=== PATIENT | female | born 1990 | race Caucasian/White ===

== ENCOUNTER 2023-06-08 20:40 | Emergency (ER) | payer OTHER, SELFPAY ==
[2023-06-08 20:50] VITALS: BP 150/80; PULSE 122; RESP 18; TEMP 36.4; O2SAT 98; BMI 31.8
[2023-06-08 22:14] LABS: Appearance Urine UA CLEAR; Bilirubin Urine UA NEGATIVE (NEGATIVE); Color Urine UA YELLOW; Glucose Urine UA NEGATIVE (Negative); Ketones Urine UA 1+ (NEGATIVE); Leukocyte Esterase Urine UA NEGATIVE (NEGATIVE); Nitrite Urine UA NEGATIVE (Negative); Occult Blood Urine UA 3+ (Negative); Protein Urine UA 1+ (Negative); Specific Gravity Urine UA >=1.030 (1.000-1.035); Urobilinogen Urine UA 0.2 E.U./dL (0.2)
[2023-06-08 22:15] LABS: pH Urine UA 5.5 (4.5-8.0)
[2023-06-08 22:19] LABS: Pregnancy Test Urine Negative (Negative); UR Morphine/Opiate cutoff 300 Negative (Negative); Ur Creatinine Normal (Normal); Ur Specific Gravity Normal (Normal); Urine Amphetamines Negative (Negative); Urine Barbiturates Negative (Negative); Urine Benzodiazepines Negative (Negative); Urine Cocaine Negative (Negative); Urine MDMA Negative (Negative); Urine Methadone Negative (Negative); Urine Methamphetamines Negative (Negative); Urine Oxycodone Negative (Negative); Urine Phencyclidine Negative (Negative); Urine Tetrahydrocannabinol Positive (Negative); Urine Tricyclic Antidepressant Negative (Negative); Urine pH Normal (Normal)
[2023-06-08 22:35] LABS: Amorphous Sediment Urine 2+; Bacteria Urine Occasional (0-1); RBC Urine 5-10/HPF (0-5/HPF); Squamous Epithelial Cell Urine 1-5 /HPF (0-5/HPF); WBC Urine 0-1/HPF (0-5/HPF)
[2023-06-08 22:36] LABS: Culture Indicated Urine Cult Not Indicated
[2023-06-08 23:42] LABS: Add Manual Diff / Slide Review NO; Basophils Absolute Auto 0 /uL (0-100); Basophils Percent Auto 0.4 % (0-2); Eosinophils Absolute Auto 0 /uL (0-450); Hematocrit 37.5 % (36-46); Hemoglobin 12.7 g/dL (12.0-16.0); Lymphocytes Absolute Auto 1000 /uL (1100-4500); Lymphocytes Percent Auto 9.2 % (25-40); Mean Corpuscular HGB Conc 33.9 % (30-36); Mean Corpuscular Volume 100.1 fL (80-100); Monocytes Absolute Auto 700 /uL (0-900); Neutrophils Absolute Auto 8700 /uL (1500-7000); Neutrophils Percent Auto 83.4 % (50-75); Platelet Count 300 X10^3/uL (150-400); Red Blood Cell Count 3.74 X10^6/uL (4.0-5.2); Red Cell Distribution Width 14.3 % (11.6-14.8); White Blood Cell Count 10.5 X10^3/uL (4.5-11.0)
[2023-06-08 23:52] LABS: Alanine Aminotransferase 87 IU/L (<35); Albumin 4.4 g/dL (3.5-5.0); Albumin Globulin Ratio 1.3 (1.0-2.8); Alkaline Phosphatase 86 U/L (38-126); Aspartate Aminotransferase 193 IU/L (14-36); BUN Creatinine Ratio 16.4 (6-22); Bilirubin Total 1.2 mg/dL (0.2-1.3); Blood Urea Nitrogen 11 mg/dL (7-17); Calcium 9.7 mg/dL (8.4-10.2); Carbon Dioxide 26 mmol/L (22-32); Chloride 96 mmol/L (98-107); Estimated Glomerular Filt Rate > 60 mL/min (>60); Ethanol (ETOH) < 10 mg/dL; Globulin 3.4 g/dL (1.7-4.1); Glucose 96 mg/dL (70-100); HEMOLYSIS < 15 (0-50); Potassium 3.8 mmol/L (3.4-5.1); Sodium 132 mmol/L (137-145); Total Protein 7.8 g/dL (6.3-8.2)
--- NOTE | 2023-06-09 | ED.PSYCH ---
HPI - Psych General Chief Complaint: Psychiatric Symptoms Stated Complaint: anxiety/hallucination/poss seizure Time Seen by Provider: 06/08/23 21:11 Source: patient Mode of arrival: Ambulatory History of Present Illness HPI Narrative: 33-year-old woman presents this evening after an episode that her describes as seizure-like activity. They were lying in bed together and he noticed that she became stiff all over her arms were straight out in front of her with some muscle twitching. She was unresponsive and he turned her onto her side. After about a minute she seemed to be more responsive but was still quite confused for approximately 15-30 minutes after the episode. There was no loss of bowel or bladder. The patient does not remember this episode and describes a fuzzy feeling persisted. On further questioning she notes that she will occasionally have episodes that she describes as ?intense days of who? where she will stare off up into the left and be absent for a moment or 2 enough that friends and family notice as well. She noted today that she had quite a few of these episodes. She does not describe recent fevers, cough, chills. She isn't particularly sleep deprived. She notes she does use marijuana regularly to help with sleep. Related Data Home Medications Medication Instructions Recorded Confirmed hydroxyzine HCl 25 mg tablet 25 mg PO Q6H PRN PRN 06/08/23 06/08/23 venlafaxine 150 mg 150 mg PO DAILY 06/08/23 06/08/23 capsule,extended release 24 hr venlafaxine 75 mg capsule,extended 75 mg PO DAILY 06/08/23 06/08/23 release 24 hr Previous Rx's Medication Instructions Recorded diazepam 5 mg tablet 5 mg PO DAILY PRN seizure like 06/09/23 activity #10 tabs Allergies Allergy/AdvReac Type Severity Reaction Status Date / Time Penicillins Allergy Verified 06/08/23 20:50 Review of Systems Review of Systems Narrative: Pertinent positive and negative findings as per HPI Patient History alcohol intake frequency: holidays/special occasions only Substance Use Type: marijuana Exam Initial Vital Signs Initial Vital Signs: Vital Signs Temperature 97.6 F 06/08/23 20:50 Pulse Rate 122 H 06/08/23 20:50 Respiratory Rate 18 06/08/23 20:50 Blood Pressure 150/80 H 06/08/23 20:50 Pulse Oximetry 98 06/08/23 20:50 Oxygen Delivery Method Room Air 06/08/23 20:50 General: Healthy appearing, in no acute distress. Able to give a complete and coherent history. Well-nourished well-developed HEENT: Moist mucous membranes, normal sclera with reactive pupils, small bite benton right side of her tongue Respiratory: Lungs are clear to auscultation, no wheezing no rales no rhonchi. Full and symmetrical air movement Cardiac: Regular rate and rhythm no murmurs no bruits Abdomen: Soft, nontender, good bowel tones, no flank pain Skin: Warm and dry, no rashes Neurologic: Grossly neurologically intact with no obvious asymmetries or abnormalities, she is not hyperreflexic Extremities: No trauma, well perfused Psych: Cooperative, appropriate insight and affect Course Orders Ordered: ED Orders 06/08/23 20:53 Urine Drug Screen, Rapid Stat 06/08/23 22:01 Test Urine Stat urine tox [Urine Drug Screen, Rapid] Stat 06/08/23 22:06 Urinalysis and Microscopic Stat 06/08/23 23:23 EKG-12 Lead Stat 06/08/23 23:33 Complete Blood Count AUTO DIFF Stat Comprehensive Metabolic Panel Stat Ethanol (ETOH) Stat TSH w/ Reflex to FT4 Stat Vital Signs Vital signs: Vital Signs - 8 hr 06/08/23 20:50 Temperature 97.6 F Pulse Rate 122 H Respiratory Rate 18 Blood Pressure 150/80 H Pulse Oximetry 98 Oxygen Delivery Method Room Air MDM - Psych Lab Data 06/08/23 23:33 06/08/23 23:33 Labs: Lab Results 06/08/23 06/08/23 06/08/23 Range/Units 20:53 22:01 22:06 WBC (4.5-11.0) X10^3/uL RBC (4.0-5.2) X10^6/uL Hgb (12.0-16.0) g/dL Hct (36-46) % MCV (80-100) fL MCH (26-34) PG MCHC (30-36) % RDW (11.6-14.8) % Plt Count (150-400) X10^3/uL Neut % (Auto) (50-75) % Lymph % (Auto) (25-40) % [place] % (Auto) (3-14) % Eos % (Auto) (2-4) % Baso % (Auto) (0-2) % Neut # (Auto) (7000-1295) /uL Lymph # (Auto) (1567-3102) /uL [place] # (Auto) (0-900) /uL Eos # (Auto) (0-450) /uL Baso # (Auto) (0-100) /uL Sodium (137-145) mmol/L Potassium (3.4-5.1) mmol/L Chloride (98-107) mmol/L Carbon Dioxide (22-32) mmol/L BUN (7-17) mg/dL Creatinine (0.52-1.04) mg/dL Estimated GFR (>60) mL/min BUN/Creatinine Ratio (6-22) Glucose (70-100) mg/dL Calcium (8.4-10.2) mg/dL Total Bilirubin (0.2-1.3) mg/dL AST (14-36) IU/L ALT (<35) IU/L Alkaline Phosphatase (38-126) U/L Total Protein (6.3-8.2) g/dL Albumin (3.5-5.0) g/dL Globulin (1.7-4.1) g/dL Albumin/Globulin Ratio (1.0-2.8) Urine Color Yellow Urine Appearance Clear Ur Specific [place] >=1.030 H (1.000-1.035) Urine Protein 1+ H (Negative) Urine Glucose (UA) Negative (Negative) g/dL Urine Ketones 1+ H (NEGATIVE) Urine Occult Blood 3+ H (Negative) Urine Nitrate Negative (Negative) Urine Bilirubin Negative (NEGATIVE) Urine Urobilinogen 0.2 (0.2) E.U./dL Ur Leukocyte Esterase Negative (NEGATIVE) Urine RBC 5-10/hpf H (0-5/HPF) Urine WBC 0-1/hpf (0-5/HPF) Ur Squamous Epith Cells 1-5 /hpf (0-5/HPF) Amorphous Sediment 2+ Urine Bacteria Occasional (0-1) (None) Ur Culture Indicated? Cult not indicated Urine Test Negative (Negative) U Opiates 300ng/mL cut TNP Negative Ur Oxycodone Screen TNP Negative Urine Methadone Screen TNP Negative Ur Barbiturates Screen TNP Negative U Tricyclic Antidepress TNP Negative Ur Phencyclidine Scrn TNP Negative Ur Amphetamines Screen TNP Negative U Methamphetamines Scrn TNP Negative Ur MDMA Scrn (Ecstasy) TNP Negative U Benzodiazepines Scrn TNP Negative Urine Cocaine Screen TNP Negative U Marijuana (THC) Screen TNP Positive H Urine pH TNP Normal 5.5 Urine Specific [place] TNP Normal Ethyl Alcohol ( - 10) mg/dL Ur Creatinine TNP Normal 12/30/23 Range/Units 23:33 WBC 10.5 (4.5-11.0) X10^3/uL RBC 3.74 L (4.0-5.2) X10^6/uL Hgb 12.7 (12.0-16.0) g/dL Hct 37.5 (36-46) % MCV 100.1 H (80-100) fL MCH 34.0 (26-34) PG MCHC 33.9 (30-36) % RDW 14.3 (11.6-14.8) % Plt Count 300 (150-400) X10^3/uL Neut % (Auto) 83.4 H (50-75) % Lymph % (Auto) 9.2 L (25-40) % [place] % (Auto) 7.0 (3-14) % Eos % (Auto) 0.0 L (2-4) % Baso % (Auto) 0.4 (0-2) % Neut # (Auto) 8700 H (1152-7972) /uL Lymph # (Auto) 1000 L (8342-7915) /uL [place] # (Auto) 700 (0-900) /uL Eos # (Auto) 0 (0-450) /uL Baso # (Auto) 0 (0-100) /uL Sodium 132 L (137-145) mmol/L Potassium 3.8 (3.4-5.1) mmol/L Chloride 96 L (98-107) mmol/L Carbon Dioxide 26 (22-32) mmol/L BUN 11 (7-17) mg/dL Creatinine 0.67 (0.52-1.04) mg/dL Estimated GFR > 60 (>60) mL/min BUN/Creatinine Ratio 16.4 (6-22) Glucose 96 (70-100) mg/dL Calcium 9.7 (8.4-10.2) mg/dL Total Bilirubin 1.2 (0.2-1.3) mg/dL AST 193 H (14-36) IU/L ALT 87 H (<35) IU/L Alkaline Phosphatase 86 (38-126) U/L Total Protein 7.8 (6.3-8.2) g/dL Albumin 4.4 (3.5-5.0) g/dL Globulin 3.4 (1.7-4.1) g/dL Albumin/Globulin Ratio 1.3 (1.0-2.8) Urine Color Urine Appearance Ur Specific [place] (1.000-1.035) Urine Protein (Negative) Urine Glucose (UA) (Negative) g/dL Urine Ketones (NEGATIVE) Urine Occult Blood (Negative) Urine Nitrate (Negative) Urine Bilirubin (NEGATIVE) Urine Urobilinogen (0.2) E.U./dL Ur Leukocyte Esterase (NEGATIVE) Urine RBC (0-5/HPF) Urine WBC (0-5/HPF) Ur Squamous Epith Cells (0-5/HPF) Amorphous Sediment Urine Bacteria (None) Ur Culture Indicated? Urine Test (Negative) U Opiates 300ng/mL cut Ur Oxycodone Screen Urine Methadone Screen Ur Barbiturates Screen U Tricyclic Antidepress Ur Phencyclidine Scrn Ur Amphetamines Screen U Methamphetamines Scrn Ur MDMA Scrn (Ecstasy) U Benzodiazepines Scrn Urine Cocaine Screen U Marijuana (THC) Screen Urine pH Urine Specific [place] Ethyl Alcohol < 10 ( - 10) mg/dL Ur Creatinine Point of Care Testing Test Results Negative Urine Dip Bedside Urine Glucose Negative Bedside Urine Bilirubin - Negative Bedside Urine Ketone - Negative Urine Specific [place] 1.000 Bedside Urine Occult Blood - Negative Bedside Urine pH 6.0 Bedside Urine Protein - Negative Bedside Urine Urobilinogen - Negative Bedside Urine Nitrite - Negative Bedside Urine Leukocytes - Negative Esterase MDM Narrative Medical decision making narrative: CC: Probable seizure with postictal. Complicating co-morbidities: Seizures have not been diagnosed, she may be having PET mal seizures as well Data collected from: patient, partner Differential considered: Grand mal seizure, peptic mal seizure, infection, electrolyte abnormality, adverse reaction to THC Exam documented above, pertinent findings include: Patient seems to be back to her baseline both cognitively and physically. She is not hyperreflexic. She does have a small bite benton to the right side of her tongue suggesting seizure activity Lab Test results independently reviewed as above. Pertinent findings: CBC is unremarkable Chemistries are relatively reassuring, she has mildly elevated AST and ALT Urine tox screen shows marijuana only Urinalysis is unremarkable Independently reviewed EKG: Sinus rhythm at a rate of 93. Normal intervals, normal axis. No acute ischemic changes Imaging studies independently reviewed: CT scans of the brain is ordered as this is likely a 1st grand mal seizure and 33-year-old woman. No acute abnormalities are appreciated Treatments: Oral diazepam Discussion: 33-year-old woman who sounds like she had a couple of episodes of PET mal seizures today culminating in a 1 minute grand mal seizure. She is never had a grand mal seizure that she is aware of. She does have a bite benton tongue and descriptions of postictal. She is currently clearing. Workup is unremarkable including CT scan and lab work. We discussed use of diazepam if she has a day where she is having multiple episodes of what likely are patent mal seizures that she is describing as intense episodes of Kortney vu?. With the 1st seizure and no formal diagnosis made there is no indication for seizure treatment daily. She notes that she does use an indicate blend of THC at night for sleep. I suggested that if she is going to be using THC, to buy a product that also is high in CBD as this may help with seizure prevention. He is given copies of labs and CT scan to share with her primary care doctor with whom she has an appointment in 1 week. Understands the need for appropriate follow-up and reasons to return to the emergency department. Questions are answered and she is safe for discharge Discharge Plan Departure Patient Disposition: Home Clinical Impression: Seizure Instructions: DI for Seizure Disorder -- Adult Activity Restrictions/Additional Instructions: Thank you for coming in today The description of the events of this evening very much sound like a seizure. Your description of the recurrent ?Kortney vu? episodes where your friends even notice that you are looking up to the side may well be PET mal type seizures. The 1 minute episode with total body stiffness is very consistent with a grand mal seizure this evening. The memory loss immediately after that in the persistent fuzzy feeling for an hour or so is very consistent with a postictal period (meaning after seizure). Your workup today was actually quite reassuring otherwise. Your blood work did not suggest significant infection or electrolyte abnormalities. We did do a CT scan of your brain that did not show any significant abnormalities. You do need to follow up with your primary care doctor who may recommend neurology referral or an EEG for complete diagnosis. I have given you copies of the blood work results and CT report from the emergency room this evening If you find that you are getting worse or develop any new symptoms, please feel free to return to the emergency department for further evaluation. Prescriptions: New diazepam 5 mg tablet 5 mg PO DAILY PRN (Reason: seizure like activity) Qty: 10 0RF No Action venlafaxine 150 mg capsule,extended release 24hr 150 mg PO DAILY venlafaxine 75 mg capsule,extended release 24hr 75 mg PO DAILY hydroxyzine HCl 25 mg tablet 25 mg PO Q6H PRN (Reason: PRN) Referrals: Bijal Johns ARNP [Primary Care Provider] - Stand Alone Forms: Patient Portal/API
--- NOTE | 2023-06-09 00:18 | DI.CT.S_ITS ---
PROCEDURE: CT HEAD/BRAIN WO CON INDICATIONS: seizure TECHNIQUE: Noncontrast 4.5 mm thick angled axial sections acquired from the foramen magnum to the vertex, with coronal and sagittal reformats. For radiation dose reduction, the following was used: automated exposure control, adjustment of mA and/or kV according to patient size. COMPARISON: None. FINDINGS: Image quality: Diagnostic. CSF spaces: Basal cisterns are patent. No extra-axial fluid collections. Ventricles are normal in size and shape. Brain: No midline shift. No intracranial masses or hemorrhage. Lezama-white matter interface is normal. Skull and face: Calvarium and visualized facial bones are intact, without suspicious lesions. Sinuses: Visualized sinuses and mastoids are clear. IMPRESSION: 1. No acute intracranial pathology. A cause for seizure is not identified. Consider MRI with and without contrast for follow-up Dictated by: Clarissa Hernandez M.D. on 06/09/2023 at 0:52 Approved by: Clarissa Hernandez M.D. on 06/09/2023 at 0:54
[2023-06-09] MEDS: diazePAM 5 MG TABLET PO (00:19)
[2023-06-09 00:48] LABS: TSH w/ Reflex to FT4 1.02 uIU/mL (0.47-4.68)
[2023-06-09 01:29] VITALS: BP 128/70; PULSE 88; RESP 16; TEMP 36.3; O2SAT 98
== END 2023-06-09 01:30 | disposition home or self-care (01) ==
PROVIDERS: Emergency Provider Emergency Medicine; PCP Nurse Practitioner Family
DX: G40.909 Epilepsy, unspecified, not intractable, without status epilepticus (principal); R07.9 Chest pain, unspecified
CPT/HCPCS: 36415; 70450; 80053; 80305; 80320; 81001; 81003; 81025; 84443; 85025; 93005; 99283; 99284

== ENCOUNTER → 2024-07-19 15:44 | Outpatient (CLI) | payer BC, SELFPAY ==
[2024-07-19 16:29] LABS: Influenza A - CEPHEID Flu A NEGATIVE (NEGATIVE); Influenza B - CEPHEID Flu B NEGATIVE (NEGATIVE); Respiratory Syncytial Virus Negative (Negative)
[2024-07-19 16:30] LABS: COVID-19 CEPHEID 4-PLEX PCR Negative (Negative)
== END ==
PROVIDERS: PCP Nurse Practitioner Family; Visit Provider Nurse Practitioner Family
DX: R05.1 Acute cough (principal)
CPT/HCPCS: 0241U; 87070

== ENCOUNTER 2025-01-12 13:36 | Inpatient (IN) | payer BC, SELFPAY ==
[2025-01-12] VITALS (20 sets, daily range): BP systolic 130–175; BP diastolic 74–112; PULSE 90–167; RESP 20–39; TEMP 36.1–37.2; O2SAT 97–100; BMI 31.8
--- NOTE | 2025-01-12 14:13 | DI.CT.S_ITS ---
PROCEDURE: CT HEAD/BRAIN WO CON INDICATIONS: seizure/fall TECHNIQUE: Noncontrast 4.5 mm thick angled axial sections acquired from the foramen magnum to the vertex, with coronal and sagittal reformats. For radiation dose reduction, the following was used: automated exposure control, adjustment of mA and/or kV according to patient size. COMPARISON: [facility], CT, CT HEAD/BRAIN WO CON, 06/09/2023, 0:30. FINDINGS: Image quality: Diagnostic CSF spaces: Basal cisterns are patent. Lateral ventricles are symmetric. Volume: Generally maintained. Brain: No intracranial hemorrhage. Lezama-white differentiation is grossly maintained. Craniofacial structures: No significant paranasal sinus opacity. IMPRESSION: No acute intracranial pathology. If there is high concern for parenchymal pathology, consider further evaluation with MRI. Dictated by: Ilya Guzman M.D. on 01/12/2025 at 14:34 Approved by: Ilya Guzman M.D. on 01/12/2025 at 14:35
[2025-01-12 14:28] LABS: Add Manual Diff / Slide Review NO; Hematocrit 32.0 % (36-46); Hemoglobin 10.7 g/dL (12.0-16.0); Lymphocytes Absolute Auto 1200 /uL (1100-4500); Mean Corpuscular HGB Conc 33.4 % (30-36); Mean Corpuscular Hemoglobin 30.2 PG (26-34); Mean Corpuscular Volume 90.5 fL (80-100); Platelet Count 200 X10^3/uL (150-400)
[2025-01-12 14:31] LABS: INR 1.0 (0.9-1.3); Prothrombin Time 11.8 SECONDS (9.4-12.5)
[2025-01-12 14:33] LABS: PTT Partial Thromboplastin Tim 26 SECONDS (25.1-36.5)
[2025-01-12 14:40] LABS: Anisocytosis 2+
[2025-01-12 14:46] LABS: Ethanol (ETOH) < 10 mg/dL (<10); Magnesium 1.4 mg/dL (1.6-2.3)
[2025-01-12 14:47] LABS: Alanine Aminotransferase 77 IU/L (<35); Albumin 4.9 g/dL (3.5-5.0); Albumin Globulin Ratio 1.3 (1.0-2.8); Alkaline Phosphatase 100 U/L (38-126); Blood Urea Nitrogen 11 mg/dL (7-17); Calcium 9.7 mg/dL (8.4-10.2); Carbon Dioxide 20 mmol/L (22-32); Chloride 97 mmol/L (98-107); Estimated Glomerular Filt Rate > 60 mL/min (>60); Globulin 3.7 g/dL (1.7-4.1); Glucose 113 mg/dL (70-99); HEMOLYSIS < 15 (0-50); Potassium 3.4 mmol/L (3.4-5.1); Sodium 133 mmol/L (137-145); Total Protein 8.6 g/dL (6.3-8.2)
--- NOTE | 2025-01-12 15:58 | ED_ITS ---
HPI - Seizure General Chief Complaint: Seizure Stated Complaint: Had Seizure yesterday hit face, and left arm Time Seen by Provider: 01/12/25 15:32 Source: patient Mode of arrival: Ambulatory Limitations: no limitations History of Present Illness HPI Narrative: This is a 34-year-old female who arrives by private vehicle accompanied by her . She is concerned that she had a seizure yesterday. is present witnessed a seizure and contributes the history. Reportedly yesterday morning she was found by her with her arms outstretched unresponsive muscles tense ?breathing funny? and drooling. This persisted for about 3 minutes, the patient states she has no recollection of this. Following this she had an approximately 10 minute postictal phase until she regained full orientation. She did bite her tongue, she injured the right side of her face during the seizure. The patient has had 1 seizure in her lifetime previously where she was seen here. She is not regularly take antiseizure medications. She does take Effexor 150 mg daily and propranolol she believes it is 60 mg daily. The propranolol for hypertension. The patient drinks alcohol daily approximately a bottle of wine for the last 6 weeks. She has had alcohol withdrawal tremors in the past. Today she is endorsing auditory hallucinations. She is not having nausea or vomiting. She has never been hospitalized for alcohol withdrawals. States her last alcohol was the night before she had the seizure. That seizure was approximately 36 hours ago. She has not had a seizure since. Denies recreational drug use states that she can not get . Related Data Home Medications ?Medication ?Instructions ?Recorded ?Confirmed hydroxyzine HCl 25 mg tablet 25 mg PO Q6H PRN PRN 05/1201/12/25 venlafaxine 150 mg 150 mg PO DAILY 06/08/2311/01 capsule,extended release 24 hr propranolol 60 mg capsule,24 60 mg PO DAILY 07/19/24 0 01/12/25 hr,extended release venlafaxine 75 mg capsule,extended 75 mg PO DAILY 12/0201/13/25 release 24 hr Previous Rx's ?Medication ?Instructions ?Recorded diazepam 5 mg tablet 5 mg PO DAILY PRN seizure li ke 06/09/23 activity #10 tabs diazepam 5 mg/spray (0.1 mL) nasal 5 mg (0.1 mL) intra nasal .once PRN 01/14/25 spray (Valtoco) Seizure #5 ea thiamine HCl (vitamin B1) 100 mg 100 mg PO BID #60 tab s 01/14/25 tablet Allergies Allergy/AdvReac Type Severity Reaction Status Date / Time Penicillins Allergy Intermediate Hives Verified 01/12/25 17:42 amoxicillin AdvReac Intermediate Hives Verified 01/12/25 17:42 Patient History Social History household members: significant other Smoking Status: Never smoker alcohol intake frequency: holidays/special occasions only Exam Initial Vital Signs Initial Vital Signs: Vital Signs Temperature 96.9 F L 01/12/25 13:45 Pulse Rate 110 H 01/12/25 13:45 Respiratory Rate 20 01/12/25 13:45 Blood Pressure 145/97 H 01/12/25 13:45 Pulse Oximetry 98 01/12/25 13:45 Oxygen Delivery Method Room Air 01/12/25 13:45 vital signs are reviewed Const General: cooperative HENMT Head: normocephalic Face and sinus: face symmetric Mouth: moist mucous membranes (Bite wound to the right side of the tongue) Teeth and gingiva: dentition normal HENND Other: Ecchymosis to the right side of her face Eyes Pupils: PERRL EOM: EOM intact bilaterally Neck Neck: normal visual inspection, supple and No JVD Chest Chest: normal inspection of the chest Resp Effort & Inspection: normal respiratory effort and able to speak in complete sentences Auscultation: clear to auscultation bilaterally Cardio Rate: regular rate Rhythm: regular rhythm Heart Sounds: no murmurs GI Inspection: normal to inspection Palpation: soft Auscultation: normal bowel sounds Back/Spine/Pelvis Back: normal to inspection Skin General: no rashes or lesions noted and warm Neuro General: patient alert, patient oriented x3 (Quite tremulous.) and moves all extremities Speech: speech normal Extrem General: full ROM Psych Appearance: grossly normal Course Orders Ordered: Discontinued Medications Chlordiazepoxide HCl (Chlordiazepoxide 25 Mg Capsule) 25 mg PO TID [facility] Last Admin: 01/14/25 14:40 Dose: 25 mg Documented By: Admin: 01/14/25 08:49 Dose: 25 mg Documented By: Admin: 01/13/25 20:43 Dose: 25 mg Documented By: Admin: 01/13/25 15:19 Dose: 25 mg Documented By: Admin: 01/13/25 09:23 Dose: 25 mg Documented By: Admin: 01/12/25 20:59 Dose: 25 mg Documented By: Admin: 01/12/25 18:04 Dose: 25 mg Documented By: LIT Diazepam (Diazepam 10 Mg/2 Ml Syringe) 10 mg IV Q20MIN PRN PRN Reason: Seizures Diazepam (Diazepam 10 Mg/2 Ml Syringe) 0 mg IV CIWAPRN PRN; Protocol PRN Reason: Alcohol Withdrawal Last Admin: 01/13/25 20:32 Dose: 10 mg Documented By: Admin: 01/13/25 19:08 Dose: 10 mg Documented By: Admin: 01/13/25 17:39 Dose: 5 mg Documented By: Admin: 01/13/25 10:55 Dose: 5 mg Documented By: Admin: 01/13/25 00:25 Dose: 10 mg Documented By: Admin: 01/12/25 21:00 Dose: 5 mg Documented By: Folic Acid (Folic Acid 1 Mg Tablet) 1 mg PO DAILY CHRISTIANO Last Admin: 01/14/25 08:49 Dose: 1 mg Documented By: Admin: 01/13/25 10:55 Dose: 1 mg Documented By: LIT Thiamine HCl 100 mg/ Sodium (Chloride) 101 mls @ 404 mls/hr IV DAILY CHRISTIANO Last Infusion: 01/14/25 09:41 Dose: Infused Documented By: Admin: 01/14/25 08:53 Dose: 404 mls/hr Documented By: Infusion: 01/13/25 09:38 Dose: Infused Documented By: Admin: 01/13/25 09:23 Dose: 404 mls/hr Documented By: LIT dexmedeTOMIDine in 0.9 % NaCL (Precedex) 400 mcg in 100 mls @ 4.082 mls/hr IV TITRATE CHRISTIANO; Protocol Last Admin: 01/12/25 18:29 Dose: Not Given Documented By: LIT Lorazepam (Lorazepam 2 Mg/Ml Inj) 0 mg IV CIWAPRN PRN; Protocol PRN Reason: Alcohol Withdrawal Lorazepam (Lorazepam 1 Mg Tablet) 0 mg PO CIWAPRN PRN; Protocol PRN Reason: Alcohol Withdrawal Last Admin: 01/12/25 19:47 Dose: 1 mg Documented By: Multivitamins (Multivitamin 1 Tablet) 1 tab PO DAILY [facility] Last Admin: 01/14/25 08:49 Dose: 1 tab Documented By: Admin: 01/13/25 09:23 Dose: 1 tab Documented By: LIT Naloxone HCl (Naloxone 0.4 Mg/Ml Vial) 0.2 mg IV Q2MIN PRN PRN Reason: Opiate Reversal Pantoprazole Sodium (Pantoprazole Dr 40 Mg Tablet) 40 mg PO 0700 [facility] Last Admin: 01/14/25 09:09 Dose: Not Given Documented By: Admin: 01/13/25 09:23 Dose: 40 mg Documented By: LIT Phenobarbital (Phenobarbital 65 Mg/Ml Vial) 260 mg IV NOW ONE Stop: 01/12/25 16:01 Last Admin: 01/12/25 16:32 Dose: 260 mg Documented By: ROSHAN Phenobarbital (Phenobarbital 65 Mg/Ml Vial) 65 mg IV Q8H [facility] Stop: 01/15/25 16:44 Last Admin: 01/14/25 00:10 Dose: Not Given Documented By: Admin: 01/13/25 16:48 Dose: 65 mg Documented By: Admin: 01/13/25 09:23 Dose: 65 mg Documented By: Admin: 01/13/25 00:11 Dose: 65 mg Documented By: Admin: 01/12/25 18:04 Dose: 65 mg Documented By: LIT Phenobarbital (Phenobarbital 65 Mg/Ml Vial) 65 mg IV Q8H [facility] Stop: 01/15/25 22:01 Last Admin: 01/14/25 09:41 Dose: Not Given Documented By: GHULAM Phenobarbital (Phenobarbital 65 Mg/Ml Vial) 30 mg IV Q8H [facility] Stop: 01/16/25 06:01 Potassium Chloride (Potassium Chloride 20 Meq Tab) 40 meq PO Q6H [facility] Stop: 01/13/25 15:16 Last Admin: 01/13/25 15:20 Dose: 40 meq Documented By: Admin: 01/13/25 10:56 Dose: 40 meq Documented By: LIT Venlafaxine HCl (Venlafaxine Er 75 Mg Cap) 75 mg PO DAILY [facility] Venlafaxine HCl (Venlafaxine Er 75 Mg Cap) 225 mg PO DAILY [facility] Last Admin: 01/14/25 08:49 Dose: 225 mg Documented By: GHULAM Consultations Consultation #1: Case is discussed with hospitalist, Dr. Paniagua, accepts admission Vital Signs Vital signs: Vital Signs - 8 hr 01/12/25 13:45 Temperature 96.9 F L Pulse Rate 110 H Respiratory Rate 20 Blood Pressure 145/97 H Pulse Oximetry 98 Oxygen Delivery Method Room Air MDM - Seizure Lab Data Lab results narrative: Sodium is slightly low at 133, I would not expect this to cause a seizure. CO2 is low at 20. Alcohol not detected 01/14/25 06:37 01/14/25 04:40 Labs: Lab Results 01/12/25 Range/Units 14:05 WBC 8.4 (4.5-11.0) X10^3/uL RBC 3.53 L (4.0-5.2) X10^6/uL Hgb 10.7 L (12.0-16.0) g/dL Hct 32.0 L (36-46) % MCV 90.5 (80-100) fL MCH 30.2 (26-34) PG MCHC 33.4 (30-36) % RDW 20.4 H (11.6-14.8) % Plt Count 200 (150-400) X10^3/uL Neut % (Auto) 75.6 H (50-75) % Lymph % (Auto) 14.5 L (25-40) % Gray % (Auto) 9.2 (3-14) % Eos % (Auto) 0.2 L (2-4) % Baso % (Auto) 0.5 (0-2) % Neut # (Auto) 6400 (8134-8241) /uL Lymph # (Auto) 1200 (7093-5292) /uL Gray # (Auto) 800 (0-900) /uL Eos # (Auto) 0 (0-450) /uL Baso # (Auto) 0 (0-100) /uL RBC Morphology See below Anisocytosis 2+ H PT 11.8 (9.4-12.5) SECONDS INR 1.0 (0.9-1.3) APTT 26 (25.1-36.5) SECONDS Sodium 133 L (137-145) mmol/L Potassium 3.4 (3.4-5.1) mmol/L Chloride 97 L (98-107) mmol/L Carbon Dioxide 20 L (22-32) mmol/L BUN 11 (7-17) mg/dL Creatinine 1.05 H (0.52-1.04) mg/dL Estimated GFR > 60 (>60) mL/min BUN/Creatinine Ratio 10.5 (6-22) Glucose 113 H (70-99) mg/dL Calcium 9.7 (8.4-10.2) mg/dL Magnesium 1.4 L (1.6-2.3) mg/dL Total Bilirubin 1.7 H (0.2-1.3) mg/dL AST 137 H (14-36) IU/L ALT 77 H (<35) IU/L Alkaline Phosphatase 100 (38-126) U/L Total Protein 8.6 H (6.3-8.2) g/dL Albumin 4.9 (3.5-5.0) g/dL Globulin 3.7 (1.7-4.1) g/dL Albumin/Globulin Ratio 1.3 (1.0-2.8) Ethyl Alcohol < 10 (<10) mg/dL Imaging Data CT scan - head: My Impression: Independently reviewed CT head, no acute findings Radiologist's Impression: Radiology reports no acute abnormality MDM Narrative Medical decision making narrative: 34-year-old female presenting with a history of a seizure yesterday. Today she is hallucinating. She appears to be withdrawing from alcohol and history is consistent with this. CT does not show any acute intracranial injury, she does not endorse any drug use. The patient is chronically on beta-blockers and has been out for about a week, I do not think that that explains her symptoms. Given that she has had a seizure and is now having auditory hallucinations I think admission is appropriate. Case is discussed with the hospitalist, we have started her on IV phenobarbital for alcohol withdrawal. This will also protect her from seizures. Discharge Plan Departure Patient Disposition: Admitted As Inpatient Clinical Impression: Seizure Alcohol withdrawal Qualifiers: Complication of substance-induced condition: with perceptual disturbance Q ualified Code(s): F10.932 - Alcohol use, unspecified with withdrawal with perceptual disturbance Admit Date/Time: 01/12/25 16:26 Admit Provider: Brayden Paniagua
--- NOTE | 2025-01-12 16:47 | PC.NURSE ---
Pt has hx ETOH use. Pt last drank Saturday night,Saturday morning she had a seizure. Pt has a bruise/contusion on right side forhead,bruising of right eyelid and bruising/swelling of upper lip. Pt has bruise on right hand. Pt drinks approx 6 glasses wine/day. Pt has not drank since Saturday night. pt is feeling anxious,visible tremors while arms at rest. Pt is hearing music that is not playing. Pt is alert/oriented .
--- NOTE | 2025-01-12 17:00 | CM.IDA ---
Initial DCP Assessment Patient is 34 y/o female who presents to the ED due to concern for ETOH withdrawals and seizure yesterday. Patient presents with bruises and contusions from fall. Patient's PCP is BÁRBARA Mcgraw at [facility], Patient has [employer] [place] [employer] [place] [employer]. Patient has hx of seizures PATIENT SUPPORT TECH meets with patient and spouse, patient presents as A/Ox4. Patient endorses that she has not been open about her ETOH use with her and had open discussion with him in the ED. Patient endorses that she drinks about 5-6 days of the week and drinks a bottle of wine each time. Patient endorses her last drink was on Saturday, patient endorses that she had a seizure yesterday. Patient endorses that she has been hearing music playing and it is confirmed by others that there is no music playing. Patient presents with anxiety, tremors, hallucinations, concern for slow processing, hx of seizures and endorses she was nauseous and vomiting yesterday. 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 Patient resides with spouse in [place]. Patient states that she is open to AA and TRENT outpatient resources. PATIENT SUPPORT TECH provides these resources to patient. Hospitalist Dr. Paniagua accepts patient as ICU for ETOH withdrawals. Plan: patient admitted to ICU, DCP to f/u with plan of care, [facility] and AA outpatient resources provided. POLI Pablo Discharge Planning/Care Management CM Discharge Assessment Start: 01/12/25 16:37 Freq: Status: Active Protocol: Document 01/12/25 16:40 LN (Rec: 01/12/25 16:55 LN [id number]) Discharge Planning Assessment Assigned Discharge POLI Zaidi [employer] DPOA/Assigned Brooks/spouse Designee Name Contact Information [phone] Advance Directives? No Advance Directives No on File History Provided By Patient,Family Member,Medical Record Has Patient been No admitted in last 30 days? Prior Living House Arrangements Household Members significant other Type of Drives own vehicle transporation used prior to admit Independent with ADL Yes 's Is patient alert and Yes oriented? Referrals Initiated None needed Additional Comment AA and outpatient [facility] resources provided to patient and spouse. Review Status In Process Next Review Type Continued Stay Review
--- NOTE | 2025-01-12 18:53 | PM.HP.1 ---
History of Present Illness History of Present Illness Date Patient Seen: 01/12/25 Chief complaint: Had Seizure yesterday hit face, and left arm Narrative: Chief complaint: Alcohol withdrawal with delirium and hallucinosis with withdrawal seizure History of present illness: 34-year-old female drinks 1 or 2 bottles of alcohol daily and has done so for the past 10 years. Had alcohol withdrawal in the past with hallucinosis and has had alcohol withdrawal seizures. is present witnessed a seizure and contributes the history. Reportedly yesterday morning she was found by her with her arms outstretched unresponsive muscles tense ?breathing funny? and drooling. This persisted for about 3 minutes, the patient states she has no recollection of this. Following this she had an approximately 10 minute postictal phase until she regained full orientation. She did bite her tongue, she injured the right side of her face during the seizure. The patient has had 1 seizure in her lifetime previously where she was seen here. She is not regularly take antiseizure medications. She does take Effexor 150 mg daily and propranolol she believes it is 60 mg daily. The propranolol for hypertension. The patient drinks alcohol daily approximately a bottle of wine for the last 6 weeks. She has had alcohol withdrawal tremors in the past. Findings in the emergency room significant for tremulous female with obvious face trauma AST 137 ALT 177 total bilirubin 1.7 magnesium 1.4 serum alcohol less than [address] of the head negative for fracture or intracranial bleed Patient is having tremors anxiety agitation and auditory hallucinosis hearing music that is not there she is aware of this For past medical surgical social and family history please see the bottom of the note: Review of systems: No weight loss or weight gain No chest pain or palpitations No diarrhea constipation Abdominal pain No urinary symptom No paresis Physical examination: Patient is very tremulous clearly uneasy hyperkinetic HEENT: Multiple paresis on the right side of the face patient has injuries to her tongue and lips Heart rate and rhythm regular and hyperdynamic Lungs clear Abdomen nontender Extremities no edema For objective laboratory and imaging data please see the bottom of the note: Assessment and plan: Alcohol withdrawal with delirium and alcohol withdrawal seizure severe with hallucinosis Admit to ICU Scheduled phenobarbital Librium Precedex infusion Diazepam IV for CIWA score and seizure Thiamine repletion for prophylaxis against Wernicke-Korsakoff syndrome Extensive counseling on rehabilitation and 12 step recovery program DVT prophylaxis: Contraindication Code status: Full code blue 75 minutes were involved in the management the patient including [id number] evaluation counseling physical examination review of objective laboratory and imaging data and discussion with emergency room provider [facility] Social History household members: significant other Smoking Status: Never smoker Meds Home Medications and Allergies Home Medications ?Medication ?Instructions ?Recorded ?Confirmed ?Type hydroxyzine HCl 25 mg tablet 25 mg PO Q6H PRN PRN 06/08/23 01/12/25 History venlafaxine 150 mg 150 mg PO DAILY 06/08/23 01/12/25 History capsule,extended release 24 hr diazepam 5 mg tablet 5 mg PO DAILY PRN seizure like 06/09/23 01/12/25 Rx activity #10 tabs propranolol 60 mg capsule,24 60 mg PO DAILY 07/19/24 01/12/25 History hr,extended release Allergies Allergy/AdvReac Type Severity Reaction Status Date / Time Penicillins Allergy Intermediate Hives Verified 01/12/25 17:42 amoxicillin AdvReac Intermediate Hives Verified 01/12/25 17:42 Exam Vital Signs (past 8 hours): - 01/12/25 13:45 01/12/25 16:30 01/12/25 17:47 Temperature 96.9 F L Pulse Rate 110 H 98 H 95 H Respiratory Rate 20 29 H Blood Pressure 145/97 H 175/112 H Pulse Oximetry 98 97 Oxygen Delivery Method Room Air Room Air 01/12/25 18:00 01/12/25 18:07 01/12/25 18:07 Temperature Pulse Rate 98 H 104 H Respiratory Rate 28 H 30 H Blood Pressure 168/100 H Pulse Oximetry Oxygen Delivery Method 01/12/25 18:42 Temperature Pulse Rate Respiratory Rate Blood Pressure Pulse Oximetry Oxygen Delivery Method Room Air Oxygen Delivery Method Room Air Objective Labs 01/12/25 14:05 01/12/25 14:05 Labs: Laboratory Results - last 24 hr 01/12/25 14:05 WBC 8.4 RBC 3.53 L Hgb 10.7 L Hct 32.0 L MCV 90.5 MCH 30.2 MCHC 33.4 RDW 20.4 H Plt Count 200 Neut % (Auto) 75.6 H Lymph % (Auto) 14.5 L [place] % (Auto) 9.2 Eos % (Auto) 0.2 L Baso % (Auto) 0.5 Neut # (Auto) 6400 Lymph # (Auto) 1200 [place] # (Auto) 800 Eos # (Auto) 0 Baso # (Auto) 0 RBC Morphology See below Anisocytosis 2+ H PT 11.8 INR 1.0 APTT 26 Sodium 133 L Potassium 3.4 Chloride 97 L Carbon Dioxide 20 L BUN 11 Creatinine 1.05 H Estimated GFR > 60 BUN/Creatinine Ratio 10.5 Glucose 113 H Calcium 9.7 Magnesium 1.4 L Total Bilirubin 1.7 H AST 137 H ALT 77 H Alkaline Phosphatase 100 Total Protein 8.6 H Albumin 4.9 Globulin 3.7 Albumin/Globulin Ratio 1.3 Ethyl Alcohol < 10 Assessment & Plan Time-Based Coding :: [TOTAL MINUTES] spent with patient and on the chart (including review of chart, obtaining history, exam, reviewing outside data, placing orders, documenting exam and treatment plan, and counseling patient) on [DATE]. Quality VTE Deep Vein Thrombosis/Pulmonary Embolism Present on Admission: No
--- NOTE | 2025-01-12 19:17 | PC.NURSE ---
Admit Note Patient arrived to room 230 at 1705 via wheelchair from ER. SBA, steady on feet to bed. CIWA 6. Reports some auditory hallucinations (music), tremors, and anxiety. Received scheduled librium and phenobarbital. Denies pain. Oriented to room and to bed/tv/call light. Call light within reach. Bed alarm on. Purse at bedside, clothing in room. Declines to lock up any valuables. Seizure pads in place.
[2025-01-12 20:31] LABS: MRSA (Nasal) PCR NOT DETECTED (Not Detect)
[2025-01-13] VITALS (52 sets, daily range): BP systolic 125–178; BP diastolic 68–106; PULSE 79–126; RESP 10–42; O2SAT 91–99
[2025-01-13 04:57] LABS: Add Manual Diff / Slide Review NO; Hematocrit 29.2 % (36-46); Hemoglobin 9.8 g/dL (12.0-16.0); Lymphocytes Absolute Auto 1500 /uL (1100-4500); Mean Corpuscular HGB Conc 33.6 % (30-36); Mean Corpuscular Hemoglobin 30.7 PG (26-34); Mean Corpuscular Volume 91.4 fL (80-100); Platelet Count 157 X10^3/uL (150-400)
[2025-01-13 05:02] LABS: Alanine Aminotransferase 63 IU/L (<35); Albumin 4.1 g/dL (3.5-5.0); Albumin Globulin Ratio 1.3 (1.0-2.8); Alkaline Phosphatase 111 U/L (38-126); Blood Urea Nitrogen 13 mg/dL (7-17); Calcium 8.9 mg/dL (8.4-10.2); Carbon Dioxide 26 mmol/L (22-32); Chloride 95 mmol/L (98-107); Estimated Glomerular Filt Rate > 60 mL/min (>60); Globulin 3.2 g/dL (1.7-4.1); Glucose 94 mg/dL (70-99); HEMOLYSIS < 15 (0-50); Potassium 3.0 mmol/L (3.4-5.1); Sodium 130 mmol/L (137-145); Total Protein 7.3 g/dL (6.3-8.2)
[2025-01-13 05:24] LABS: Anisocytosis 1+; Macrocytosis 1+
--- NOTE | 2025-01-13 06:32 | PC.NURSE ---
pt rested well overnight, cooperative with care, CIWA 6-17, medications as ordered/needed, bed alarm on, seizure precautions, call leon within reach and care ongoing
[2025-01-13] MEDS: THIAMINE 100 MG in SODIUM CHLORIDE 0.9% 100 ML 404 MG IV (09:23)
[2025-01-13] MEDS: PANTOPRAZOLE DR 40 MG TABLET PO (09:23)
[2025-01-13] MEDS: MULTIVITAMIN 1 TABLET 1 TAB PO (09:23)
[2025-01-13] MEDS: FOLIC ACID 1 MG TABLET PO (10:55)
[2025-01-13] MEDS: POTASSIUM CHLORIDE 20 MEQ TAB 40 MEQ PO ×2 (10:56→15:20)
--- NOTE | 2025-01-13 13:28 | P.PN_ITS ---
Subjective Subjective Date Patient Seen: 01/13/25 Interval history: Chief complaint: Alcohol withdrawal with delirium and hallucinosis with withdrawal seizure History of present illness: 01/12: 34-year-old female drinks 1 or 2 bottles of alcohol daily and has done so for the past 10 years. Had alcohol withdrawal in the past with hallucinosis and has had alcohol withdrawal seizures. is present witnessed a seizure and contributes the history. Reportedly yesterday morning she was found by her with her arms outstretched unresponsive muscles tense ?breathing funny? and drooling. This persisted for about 3 minutes, the patient states she has no recollection of this. Following this she had an approximately 10 minute postictal phase until she regained full orientation. She did bite her tongue, she injured the right side of her face during the seizure. The patient has had 1 seizure in her lifetime previously where she was seen here. She is not regularly take antiseizure medications. She does take Effexor 150 mg daily and propranolol she believes it is 60 mg daily. The propranolol for hypertension. The patient drinks alcohol daily approximately a bottle of wine for the last 6 weeks. She has had alcohol withdrawal tremors in the past. Findings in the emergency room significant for tremulous female with obvious face trauma AST 137 ALT 177 total bilirubin 1.7 magnesium 1.4 serum alcohol less than [address] of the head negative for fracture or intracranial bleed Patient is having tremors anxiety agitation and auditory hallucinosis hearing music that is not there she is aware of this Hospital course: 01/13: Still tremulous having night terrors tachycardic 111 and hypotensive no seizure activity continuing on scheduled phenobarbital Librium and score driven IV Valium (there is no IV lorazepam available) and if needed Precedex For past medical surgical social and family history please see the bottom of the note: Review of systems: No weight loss or weight gain No chest pain or palpitations No diarrhea constipation Abdominal pain No urinary symptom No paresis Physical examination: Patient is less tremulous less uneasy less hyperkinetic HEENT: Multiple ecchymoses on the right side of the face patient has injuries to her tongue and lips Heart rate and rhythm regular and hyperdynamic Lungs clear Abdomen nontender Extremities no edema For objective laboratory and imaging data please see the bottom of the note: Assessment and plan: Alcohol withdrawal with delirium and alcohol withdrawal seizure severe with hallucinosis * Go level of sedation today, (01/13) is sleeping but arousable * Scheduled phenobarbital Librium Precedex infusion * Diazepam IV for CIWA score and seizure * Thiamine repletion for prophylaxis against Wernicke-Korsakoff syndrome * Extensive counseling on rehabilitation and 12 step recovery program DVT prophylaxis: * Contraindication Code status: * Full code blue 35 minutes were involved in the management the patient including [id number] evaluation counseling physical examination review of objective laboratory and imaging data and discussion with emergency room provider Exam Vital Signs (past 8 hours): - 01/13/25 05:30 01/13/25 06:00 01/13/25 06:00 Pulse Rate 88 91 H Respiratory Rate 28 H 28 H Blood Pressure 126/81 Pulse Oximetry 98 98 Oxygen Delivery Method 01/13/25 06:30 01/13/25 07:00 01/13/25 07:00 Pulse Rate 82 91 H Respiratory Rate 25 H 24 Blood Pressure 178/106 H Pulse Oximetry 98 98 Oxygen Delivery Method 01/13/25 07:30 01/13/25 08:00 01/13/25 08:00 Pulse Rate 81 84 Respiratory Rate 35 H 18 Blood Pressure 153/85 H Pulse Oximetry 96 94 Oxygen Delivery Method 01/13/25 08:30 01/13/25 09:00 01/13/25 09:01 Pulse Rate 91 H 125 H Respiratory Rate 32 H 17 Blood Pressure 169/85 H 169/85 H Pulse Oximetry 94 97 Oxygen Delivery Method 01/13/25 09:01 01/13/25 09:30 01/13/25 09:30 Pulse Rate 126 H 107 H Respiratory Rate 23 21 Blood Pressure Pulse Oximetry 96 96 Oxygen Delivery Method Room Air 01/13/25 10:00 01/13/25 10:00 01/13/25 10:30 Pulse Rate 113 H 96 H Respiratory Rate 23 24 Blood Pressure 133/82 Pulse Oximetry 99 97 Oxygen Delivery Method 01/13/25 11:00 01/13/25 11:00 01/13/25 11:30 Pulse Rate 100 H 97 H Respiratory Rate 19 28 H Blood Pressure 136/88 146/101 H Pulse Oximetry 98 96 Oxygen Delivery Method 01/13/25 12:00 01/13/25 12:00 01/13/25 12:30 Pulse Rate 92 H 87 Respiratory Rate 17 21 Blood Pressure 146/101 H Pulse Oximetry 91 96 Oxygen Delivery Method 01/13/25 13:00 01/13/25 13:00 Pulse Rate 93 H Respiratory Rate 20 Blood Pressure 141/84 H Pulse Oximetry 95 Oxygen Delivery Method Oxygen Delivery Method Room Air Objective Labs 01/13/25 04:00 01/13/25 04:00 Labs: Laboratory Results - last 24 hr 01/12/25 01/12/25 01/13/25 14:05 19:00 04:00 WBC 8.4 6.8 RBC 3.53 L 3.20 L Hgb 10.7 L 9.8 L Hct 32.0 L 29.2 L MCV 90.5 91.4 MCH 30.2 30.7 MCHC 33.4 33.6 RDW 20.4 H 20.3 H Plt Count 200 157 Neut % (Auto) 75.6 H 65.8 Lymph % (Auto) 14.5 L 22.3 L [place] % (Auto) 9.2 9.9 Eos % (Auto) 0.2 L 1.5 L Baso % (Auto) 0.5 0.5 Neut # (Auto) 6400 4500 Lymph # (Auto) 1200 1500 [place] # (Auto) 800 700 Eos # (Auto) 0 100 Baso # (Auto) 0 0 RBC Morphology See below See below Anisocytosis 2+ H 1+ H Macrocytosis 1+ H PT 11.8 INR 1.0 APTT 26 Sodium 133 L 130 L Potassium 3.4 3.0 L Chloride 97 L 95 L Carbon Dioxide 20 L 26 BUN 11 13 Creatinine 1.05 H 0.77 Estimated GFR > 60 > 60 BUN/Creatinine Ratio 10.5 16.9 Glucose 113 H 94 Calcium 9.7 8.9 Magnesium 1.4 L Total Bilirubin 1.7 H 1.2 AST 137 H 117 H ALT 77 H 63 H Alkaline Phosphatase 100 111 Total Protein 8.6 H 7.3 Albumin 4.9 4.1 Globulin 3.7 3.2 Albumin/Globulin Ratio 1.3 1.3 Nasal Screen MRSA (PCR) Not detected Ethyl Alcohol < 10 PFSH Social History household members: significant other Smoking Status: Never smoker Assessment & Plan Time-Based Coding :: [TOTAL MINUTES] spent with patient and on the chart (including review of chart, obtaining history, exam, reviewing outside data, placing orders, documenting exam and treatment plan, and counseling patient) on [DATE]. Quality VTE Deep Vein Thrombosis/Pulmonary Embolism Present on Admission: No
[2025-01-13 19:47] LABS: Blood Urea Nitrogen 13 mg/dL (7-17); Calcium 9.5 mg/dL (8.4-10.2); Carbon Dioxide 27 mmol/L (22-32); Chloride 95 mmol/L (98-107); Estimated Glomerular Filt Rate > 60 mL/min (>60); Glucose 117 mg/dL (70-99); HEMOLYSIS < 15 (0-50); Potassium 4.2 mmol/L (3.4-5.1); Sodium 130 mmol/L (137-145)
[2025-01-14] VITALS (23 sets, daily range): BP systolic 117–163; BP diastolic 71–111; PULSE 73–125; RESP 11–40; TEMP 36.7; O2SAT 86–99
[2025-01-14 05:49] LABS: Alanine Aminotransferase 53 IU/L (<35); Albumin 3.9 g/dL (3.5-5.0); Albumin Globulin Ratio 1.3 (1.0-2.8); Alkaline Phosphatase 112 U/L (38-126); Blood Urea Nitrogen 15 mg/dL (7-17); Calcium 9.6 mg/dL (8.4-10.2); Carbon Dioxide 25 mmol/L (22-32); Chloride 99 mmol/L (98-107); Estimated Glomerular Filt Rate > 60 mL/min (>60); Globulin 3.0 g/dL (1.7-4.1); Glucose 106 mg/dL (70-99); HEMOLYSIS 17 (0-50); Potassium 3.9 mmol/L (3.4-5.1); Sodium 133 mmol/L (137-145); Total Protein 6.9 g/dL (6.3-8.2)
[2025-01-14 07:01] LABS: Add Manual Diff / Slide Review NO; Hematocrit 31.9 % (36-46); Hemoglobin 10.6 g/dL (12.0-16.0); Lymphocytes Absolute Auto 1300 /uL (1100-4500); Mean Corpuscular HGB Conc 33.3 % (30-36); Mean Corpuscular Hemoglobin 30.7 PG (26-34); Mean Corpuscular Volume 92.1 fL (80-100); Platelet Count 173 X10^3/uL (150-400)
[2025-01-14 07:17] LABS: Anisocytosis 1+
[2025-01-14] MEDS: VENLAFAXINE ER 75 MG CAP 225 MG PO (08:49)
[2025-01-14] MEDS: FOLIC ACID 1 MG TABLET PO (08:49)
[2025-01-14] MEDS: MULTIVITAMIN 1 TABLET 1 TAB PO (08:49)
[2025-01-14] MEDS: THIAMINE 100 MG in SODIUM CHLORIDE 0.9% 100 ML 404 MG IV (08:53)
--- NOTE | 2025-01-14 10:29 | PM.DS.1 ---
History of Present Illness History of Present Illness Date Patient Seen: 01/14/25 Chief complaint: Had Seizure yesterday hit face, and left arm Narrative: Chief complaint: Alcohol withdrawal with delirium and hallucinosis with withdrawal seizure History of present illness: 34-year-old female drinks 1 or 2 bottles of alcohol daily and has done so for the past 10 years. Had alcohol withdrawal in the past with hallucinosis and has had alcohol withdrawal seizures. is present witnessed a seizure and contributes the history. Reportedly yesterday morning she was found by her with her arms outstretched unresponsive muscles tense ?breathing funny? and drooling. This persisted for about 3 minutes, the patient states she has no recollection of this. Following this she had an approximately 10 minute postictal phase until she regained full orientation. She did bite her tongue, she injured the right side of her face during the seizure. The patient has had 1 seizure in her lifetime previously where she was seen here. She is not regularly take antiseizure medications. She does take Effexor 150 mg daily and propranolol she believes it is 60 mg daily. The propranolol for hypertension. The patient drinks alcohol daily approximately a bottle of wine for the last 6 weeks. She has had alcohol withdrawal tremors in the past. Findings in the emergency room significant for tremulous female with obvious face trauma AST 137 ALT 177 total bilirubin 1.7 magnesium 1.4 serum alcohol less than [address] of the head negative for fracture or intracranial bleed Hospital course: Patient was placed on scheduled phenobarbital Librium and Valium as needed per CIWA score. Over the 48 hours patient is delirium and withdrawal de-escalated signs of hallucinosis discontinue the were no seizures and patient was discharged to taper Librium over 3 days with intranasal Valium as needed for seizures Review of systems: No weight loss or weight gain No chest pain or palpitations No diarrhea constipation Abdominal pain No urinary symptom No paresis Physical examination: Patient is very tremulous clearly uneasy hyperkinetic HEENT: Multiple paresis on the right side of the face patient has injuries to her tongue and lips Heart rate and rhythm regular and hyperdynamic Lungs clear Abdomen nontender Extremities no edema For objective laboratory and imaging data please see the bottom of the note: Assessment and plan: Alcohol withdrawal with delirium and alcohol withdrawal seizure severe with hallucinosis Discharged on oral Librium taper thiamine and intranasal diazepam as needed procedures 35 minutes were involved in the management the patient including [id number] evaluation counseling physical examination review of objective laboratory and imaging data and discussion with emergency room provider Discharge Providers Provider Date of admission: 01/12/25 16:26 Discharge Date: 01/14/25 Primary care physician: BÁRBARA Mcgraw Consults: 01/12/25 14:13 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 Stat Comment: [employer]str[employer] Reports Developer Consult needed for:: Substance abuse Discharge provider: Brayden Paniagua MD Exam Vital Signs (past 8 hours): - 01/14/25 02:30 01/14/25 03:00 01/14/25 03:00 Temperature Pulse Rate 88 83 Respiratory Rate 11 L 18 Blood Pressure 158/101 H Pulse Oximetry 96 98 Oxygen Delivery Method 01/14/25 03:30 01/14/25 04:00 01/14/25 04:00 Temperature Pulse Rate 90 85 Respiratory Rate 17 16 Blood Pressure 140/111 H Pulse Oximetry 95 97 Oxygen Delivery Method 01/14/25 04:00 01/14/25 04:04 01/14/25 04:04 Temperature Pulse Rate 89 Respiratory Rate 18 Blood Pressure 146/95 H Pulse Oximetry 96 Oxygen Delivery Method Room Air 01/14/25 04:30 01/14/25 05:00 01/14/25 05:00 Temperature Pulse Rate 85 88 Respiratory Rate 17 16 Blood Pressure 118/72 Pulse Oximetry 96 96 Oxygen Delivery Method 01/14/25 05:30 01/14/25 06:00 01/14/25 06:00 Temperature Pulse Rate 98 H 90 Respiratory Rate 27 H 16 Blood Pressure 126/74 Pulse Oximetry 96 93 Oxygen Delivery Method 01/14/25 06:30 01/14/25 07:00 01/14/25 07:01 Temperature Pulse Rate 73 91 H 90 Respiratory Rate 16 18 14 Blood Pressure Pulse Oximetry 99 95 97 Oxygen Delivery Method 01/14/25 07:01 01/14/25 07:30 01/14/25 08:00 Temperature 98.0 F Pulse Rate 79 Respiratory Rate 16 Blood Pressure 163/91 H Pulse Oximetry 96 Oxygen Delivery Method 01/14/25 08:00 01/14/25 08:00 01/14/25 08:30 Temperature Pulse Rate 84 105 H Respiratory Rate 13 19 Blood Pressure 117/71 Pulse Oximetry 98 97 Oxygen Delivery Method 01/14/25 09:01 01/14/25 09:30 01/14/25 10:00 Temperature Pulse Rate 115 H 125 H 110 H Respiratory Rate 18 22 40 H Blood Pressure Pulse Oximetry Oxygen Delivery Method Oxygen Delivery Method Room Air Objective Labs 01/14/25 06:37 01/14/25 04:40 Labs: Laboratory Results - last 24 hr 01/13/25 01/14/25 01/14/25 19:26 04:40 06:37 WBC 6.0 RBC 3.46 L Hgb 10.6 L Hct 31.9 L MCV 92.1 MCH 30.7 MCHC 33.3 RDW 20.6 H Plt Count 173 Neut % (Auto) 63.1 Lymph % (Auto) 21.8 L [place] % (Auto) 12.2 Eos % (Auto) 2.1 Baso % (Auto) 0.8 Neut # (Auto) 3800 Lymph # (Auto) 1300 [place] # (Auto) 700 Eos # (Auto) 100 Baso # (Auto) 0 RBC Morphology Not Reportable Anisocytosis 1+ H Sodium 130 L 133 L Potassium 4.2 D 3.9 Chloride 95 L 99 Carbon Dioxide 27 25 BUN 13 15 Creatinine 0.77 0.62 Estimated GFR > 60 > 60 BUN/Creatinine Ratio 16.9 24.2 H Glucose 117 H 106 H Calcium 9.5 9.6 Total Bilirubin 0.8 AST 85 H ALT 53 H Alkaline Phosphatase 112 Total Protein 6.9 Albumin 3.9 Globulin 3.0 Albumin/Globulin Ratio 1.3 PFSH Social History household members: significant other Smoking Status: Never smoker Discharge Plan Discharge Plan Patient Disposition: Home Discharge orders & Medications Prescriptions: New chlordiazepoxide HCl 25 mg Capsule 25 mg PO TID 3 Days Qty: 9 0RF Valtoco 5 mg/spray (0.1 mL) spray,non-aerosol 5 mg intranasal .once MDD 10 PRN (Reason: Seizure) Qty: 5 0RF thiamine HCl (vitamin B1) 100 mg tablet 100 mg PO BID Qty: 60 0RF Continued propranolol 60 mg capsule,extended release 24 hr 60 mg PO DAILY venlafaxine 150 mg capsule,extended release 24hr 150 mg PO DAILY hydroxyzine HCl 25 mg tablet 25 mg PO Q6H PRN (Reason: PRN) diazepam 5 mg tablet 5 mg PO DAILY PRN (Reason: seizure like activity) Qty: 10 0RF venlafaxine 75 mg capsule,extended release 24hr 75 mg PO DAILY Rx Instructions: Take with 150 mg tab to total 225 mg. Follow up/Referrals: Bijal Johns ARNP [Primary Care Provider, Medical] Diet/Activity/Treatments Diet: Diet as Tolerated Visit Report/Discharge Packet Instructions: DI for Alcohol Use Disorder, How to Prevent Falls Discharge Data Primary Care Provider: Bijal Johns Quality VTE Deep Vein Thrombosis/Pulmonary Embolism Present on Admission: No
--- NOTE | 2025-01-14 11:06 | CM.DPNOTE ---
DC Note Discharge home w/sp today on oral librium taper. Spouse to drive. Patient has been provided with TRENT/ETOH treatment resources. No further needs from this SW team identified. DENIA
--- NOTE | 2025-01-14 15:02 | PC.NURSE ---
Discharge: Pt agreeable to discharge plan. Education provided on worsening symptoms, medication, and support services. IV removed, telemetry removed. Pt able to dress self. Pt wheeled via w/c to private vehicle with spouse and PCT at approximately 1451.
== END 2025-01-14 14:51 | disposition home or self-care (01) | DRG 897 ==
LOC: ED 16:06 → AC 16:27 → ICU 17:04
PROVIDERS: Admitting Provider Internal Medicine; Emergency Provider Emergency Medicine; PCP Nurse Practitioner Family; Referring Provider Emergency Medicine; Visit Provider Internal Medicine
DX: F10.231 Alcohol dependence with withdrawal delirium (principal); F10.251 Alcohol dependence with alcohol-induced psychotic disorder with hallucinations; I10 Essential (primary) hypertension; S00.83XA Contusion of other part of head, initial encounter; S01.552A Open bite of oral cavity, initial encounter; X58.XXXA Exposure to other specified factors, initial encounter; Y90.0 Blood alcohol level of less than 20 mg/100 ml
CPT/HCPCS: 36415; 70450; 80048; 80053; 80320; 83735; 85025; 85610; 85730; 87797; 96374; 99283; 99284; J2560; J3360

== ENCOUNTER 2025-02-26 13:10 | Inpatient (IN) | payer BC, SELFPAY ==
[2025-01-12 17:45] VITALS: BMI 31.8
[2025-02-26] VITALS (12 sets, daily range): BP systolic 143–179; BP diastolic 85–101; PULSE 81–114; RESP 16–24; TEMP 36.4–37.3; O2SAT 95–100; BMI 30.1
[2025-02-26] MEDS: ACETAMINOPHEN 325 MG TABLET 975 MG PO (14:11)
[2025-02-26 14:14] LABS: Add Manual Diff / Slide Review NO; Hematocrit 35.2 % (36-46); Hemoglobin 11.4 g/dL (12.0-16.0); Lymphocytes Absolute Auto 1000 /uL (1100-4500); Mean Corpuscular HGB Conc 32.5 % (30-36); Mean Corpuscular Hemoglobin 28.1 PG (26-34); Mean Corpuscular Volume 86.6 fL (80-100); Platelet Count 352 X10^3/uL (150-400)
[2025-02-26 14:41] LABS: Alanine Aminotransferase 42 IU/L (<35); Albumin 5.0 g/dL (3.5-5.0); Albumin Globulin Ratio 1.4 (1.0-2.8); Alkaline Phosphatase 94 U/L (38-126); Blood Urea Nitrogen 8 mg/dL (7-17); Calcium 9.3 mg/dL (8.4-10.2); Carbon Dioxide 10 mmol/L (22-32); Chloride 101 mmol/L (98-107); Creatine Kinase 379 U/L (30-135); Estimated Glomerular Filt Rate > 60 mL/min (>60); Ethanol (ETOH) < 10 mg/dL (<10); Globulin 3.7 g/dL (1.7-4.1); Glucose 161 mg/dL (70-99); HEMOLYSIS < 15 (0-50); Potassium 3.9 mmol/L (3.4-5.1); Sodium 133 mmol/L (137-145); Total Protein 8.7 g/dL (6.3-8.2)
[2025-02-26 14:43] LABS: Lactate (Lactic Acid) 8.6 mmol/L (0.7-2.1)
[2025-02-26 14:53] LABS: Troponin I < 0.012 ng/mL (0.01-0.034)
[2025-02-26 14:57] LABS: Procalcitonin 0.043 ng/mL (<0.5)
[2025-02-26 15:28] LABS: Reflexed Lactate in 2 Hours Y
--- NOTE | 2025-02-26 15:40 | ED.SEIZURE ---
HPI - Seizure General Chief Complaint: Seizure Stated Complaint: Seizure Time Seen by Provider: 02/26/25 14:58 Source: patient, family and EMS Mode of arrival: EMS Limitations: no limitations History of Present Illness HPI Narrative: 34-year-old woman brought in by medics after having a witnessed seizure at home. Spouse reports seizure lasted 3-4 minutes, associated postictal state. Reportedly has a history of seizures requiring hospitalization previously. No noted trauma with today's event. Patient when seen on January 12 with similar complaints at that point was found to be in acute alcohol withdrawal and was admitted for help with acute detoxification. Her notes she did well with the phenobarbital and Librium taper. Patient notes that she has had a returned to her at least previous levels of alcohol use with at least a bottle of wine if not more daily. Her last drink was almost 48 hours ago. She and her both describe today's seizure as far worse than the 1 she experienced on January 12. She is interested in hospitalization t to prevent further seizures and deal with the acute withdrawal and is now open to considering outpatient treatment as well. Related Data Home Medications ?Medication ?Instructions ?Recorded ?Confirmed hydroxyzine HCl 25 mg tablet 25 mg PO Q6H PRN PRN 06/08/23 01/12/25 venlafaxine 150 mg 150 mg PO DAILY 06/08/23 01/12/25 capsule,extended release 24 hr propranolol 60 mg capsule,24 60 mg PO DAILY 07/19/24 01/12/25 hr,extended release venlafaxine 75 mg capsule,extended 75 mg PO DAILY 01/13/25 01/13/25 release 24 hr Previous Rx's ?Medication ?Instructions ?Recorded diazepam 5 mg tablet 5 mg PO DAILY PRN seizure like 06/09/23 activity #10 tabs diazepam 5 mg/spray (0.1 mL) nasal 5 mg (0.1 mL) intranasal .once PRN 01/14/25 spray (Valtoco) Seizure #5 ea thiamine HCl (vitamin B1) 100 mg 100 mg PO BID #60 tabs 01/14/25 tablet Allergies Allergy/AdvReac Type Severity Reaction Status Date / Time Penicillins Allergy Intermediate Hives Verified 02/26/25 13:14 amoxicillin AdvReac Intermediate Hives Verified 02/26/25 13:14 Review of Systems Review of Systems Narrative: Pertinent positive and negative findings as per HPI Patient History Medical History (Updated 02/26/25 @ 16:05 by Eliza Sharif MD) Alcohol use disorder Social History household members: significant other alcohol intake frequency: holidays/special occasions only Exam Initial Vital Signs Initial Vital Signs: Vital Signs Temperature 99.1 F 02/26/25 13:14 Pulse Rate 114 H 02/26/25 13:14 Respiratory Rate 16 02/26/25 13:14 Blood Pressure 155/93 H 02/26/25 13:14 Pulse Oximetry 97 02/26/25 13:14 Oxygen Delivery Method Room Air 02/26/25 13:14 General: No acute distress, coherent and appropriate. HEENT: Moist mucous membranes, normal sclera with reactive pupils, she did by the right side of her tongue Respiratory: Lungs are clear to auscultation, no wheezing no rales no rhonchi. Full and symmetrical air movement Cardiac: Tachycardic but otherwise Regular rate and rhythm no murmurs no bruits Abdomen: Soft, nontender, no rebound or guarding, no flank pain Skin: Warm and dry, no rashes Neurologic: Grossly neurologically intact with no obvious asymmetries or abnormalities, significant hyperreflexia with 2-3 beats of clonus Extremities: No trauma, Psych: Cooperative, tearful Course Orders Ordered: ED Orders 02/26/25 13:14 Complete Blood Count AUTO DIFF Stat Comprehensive Metabolic Panel Stat Ethanol (ETOH) Stat Lactate (Lactic Acid) Stat Procalcitonin Stat Troponin & CK Cardiac Panel Stat 02/26/25 13:41 Urine Drug Screen, Rapid Stat EKG-12 Lead Stat Discontinued Medications Acetaminophen (Acetaminophen 325 Mg Tablet) 975 mg PO NOW ONE Stop: 02/26/25 14:05 Last Admin: 02/26/25 14:11 Dose: 975 mg Documented By: SB Sodium Chloride (Normal Saline 0.9%) 1,000 mls @ 1,000 mls/hr IV BOLUS ONE Stop: 02/26/25 16:56 Last Admin: 02/26/25 16:20 Dose: 1,000 mls/hr Documented By: AI Thiamine HCl 100 mg/ Sodium (Chloride) 101 mls @ 404 mls/hr IV NOW ONE Stop: 02/26/25 15:58 Last Admin: 02/26/25 16:54 Dose: 404 mls/hr Documented By: AUTUMN Ketorolac Tromethamine (Ketorolac 30 Mg/Ml Vial) 15 mg IV NOW ONE Stop: 02/26/25 15:58 Last Admin: 02/26/25 16:19 Dose: 15 mg Documented By: AUTUMN Phenobarbital (Phenobarbital 65 Mg/Ml Vial) 260 mg IV NOW ONE Stop: 02/26/25 16:00 Last Admin: 02/26/25 16:18 Dose: 260 mg Documented By: AUTUMN Vital Signs Vital signs: Vital Signs - 8 hr 02/26/25 13:14 02/26/25 15:39 02/26/25 15:41 Temperature 99.1 F Pulse Rate 114 H 104 H 102 H Respiratory Rate 16 20 Blood Pressure 155/93 H 179/95 H 170/95 H Pulse Oximetry 97 100 98 Oxygen Delivery Method Room Air Room Air MDM - Seizure Lab Data 02/26/25 13:14 02/26/25 13:14 Labs: Lab Results 02/26/25 02/26/25 Range/Units 13:14 16:04 WBC 11.1 H (4.5-11.0) X10^3/uL RBC 4.07 (4.0-5.2) X10^6/uL Hgb 11.4 L (12.0-16.0) g/dL Hct 35.2 L (36-46) % MCV 86.6 (80-100) fL MCH 28.1 (26-34) PG MCHC 32.5 (30-36) % RDW 19.4 H (11.6-14.8) % Plt Count 352 (150-400) X10^3/uL Neut % (Auto) 83.9 H (50-75) % Lymph % (Auto) 9.3 L (25-40) % [place] % (Auto) 6.1 (3-14) % Eos % (Auto) 0.1 L (2-4) % Baso % (Auto) 0.6 (0-2) % Neut # (Auto) 9300 H (9651-5603) /uL Lymph # (Auto) 1000 L (8501-1777) /uL [place] # (Auto) 700 (0-900) /uL Eos # (Auto) 0 (0-450) /uL Baso # (Auto) 100 (0-100) /uL Sodium 133 L (137-145) mmol/L Potassium 3.9 (3.4-5.1) mmol/L Chloride 101 (98-107) mmol/L Carbon Dioxide 10 L (22-32) mmol/L BUN 8 (7-17) mg/dL Creatinine 0.73 (0.52-1.04) mg/dL Estimated GFR > 60 (>60) mL/min BUN/Creatinine Ratio 11.0 (6-22) Glucose 161 H (70-99) mg/dL Lactate 8.6 H* 0.7 (0.7-2.1) mmol/L Calcium 9.3 (8.4-10.2) mg/dL Total Bilirubin 1.0 (0.2-1.3) mg/dL AST 115 H (14-36) IU/L ALT 42 H (<35) IU/L Alkaline Phosphatase 94 (38-126) U/L Total Creatine Kinase 379 H (30-135) U/L Troponin I < 0.012 (0.01-0.034) ng/mL Total Protein 8.7 H (6.3-8.2) g/dL Albumin 5.0 (3.5-5.0) g/dL Globulin 3.7 (1.7-4.1) g/dL Albumin/Globulin Ratio 1.4 (1.0-2.8) Procalcitonin 0.043 (<0.5) ng/mL Ethyl Alcohol < 10 (<10) mg/dL MDM Narrative Medical decision making narrative: 34-year-old woman with alcohol use disorder. Seizure related to alcohol withdrawal with abrupt cessation of alcohol use January 12 with hospital admission, returned to use and similar presentation today, alcohol is 0 at this time. She had a prolonged seizure at home is complaining of severe headache, she is tachycardic hypotensive. Lab work is reassuring On physical exam she has a severe headache, slight sensitive is significantly hyperreflexic with clonus She is interested in hospitalization for alcohol withdrawal seizures and also would be willing to talk to social work about intensive outpatient treatment or even inpatient therapy at this time. She is given fluids, IV thiamine, 260 mg of phenobarbital, she has had oral Tylenol for a headache I have given her additional IV Toradol I suspect that the phenobarbital be the most effective treatment for her headache and it likely is related to for alcohol withdrawal. With similar presentation in January she did have a CT scan of her head, I do not think that is indicated today. Her reports that she did not hit her head with the seizure noticed today. Care is discussed with the hospitalist service and she will be admitted for treatment of her alcohol withdrawal seizure and alcohol use disorder Discharge Plan Departure Patient Disposition: Admitted as Observation Clinical Impression: Seizure, Alcohol use disorder Alcohol withdrawal Qualifiers: Complication of substance-induced condition: with perceptual disturbance Qualified Code(s): F10.932 - Alcohol use, unspecified with withdrawal with perceptual disturbance Admit Date/Time: 02/26/25 16:09 Admit Provider: Nemesio Carmona
[2025-02-26] MEDS: KETOROLAC 30 MG/ML VIAL 15 MG IV (16:19)
[2025-02-26] MEDS: SODIUM CHLORIDE 0.9% 1,000 ML 1000 ML IV (16:20)
[2025-02-26 16:27] LABS: Lactate 2HR (Lactic Acid Rflx) 0.7 mmol/L (0.7-2.1)
[2025-02-26] MEDS: THIAMINE 100 MG in SODIUM CHLORIDE 0.9% 100 ML 404 MG IV (16:54)
--- NOTE | 2025-02-26 17:27 | P.HP_ITS ---
History of Present Illness History of Present Illness Date Patient Seen: 02/26/25 Chief complaint: Seizure Narrative: She was a 34-year-old female with history of alcohol use disorder. She was had no alcohol for 2 days and then presented to the ED with 2 seizures EN route. She does have a history of withdrawal seizures. She was treated with phenobarbital in the emergency department and a CT of the head was unremarkable. She was also given symptomatic medication and then sent to the horn. Upon arrival she was pleasant, and comfortable. She was noted to have a fever but denies recent URI symptoms including rhinorrhea, or cough. No dysuria. She was had some diarrhea over the last day. No abdominal pain, or vomiting. She lives in the [facility] with her . Last alcohol was about 2 evenings ago and she does state that she drinks 2 relatively large bowels of wine a day. She has been drinking since college but has been drinking heavily for about the last 2 years since having a falling out with friends. She was never had sober time to speak of or been in treatment. She has been to [employer] meetings. Her does not drink around her and is described as not having an alcohol problem. [facility] Medical History Alcohol use disorder Social History household members: significant other Meds Home Medications and Allergies Home Medications ?Medication ?Instructions ?Recorded ?Confirmed ?Type hydroxyzine HCl 25 mg tablet 25 mg PO Q6H PRN PRN 05/1201/12/25 History venlafaxine 150 mg 150 mg PO DAILY 06/08/2311/01 History capsule,extended release 24 hr diazepam 5 mg tablet 5 mg PO DAILY PRN seizure li ke 06/09/23 01/12/25 Rx activity #10 tabs propranolol 60 mg capsule,24 60 mg PO DAILY 07/19/24 0 01/12/25 History hr,extended release venlafaxine 75 mg capsule,extended 75 mg PO DAILY 12/0201/13/25 History release 24 hr diazepam 5 mg/spray (0.1 mL) nasal 5 mg (0.1 mL) intra nasal .once PRN 01/14/25 Rx spray (Valtoco) Seizure #5 ea thiamine HCl (vitamin B1) 100 mg 100 mg PO BID #60 tab s 01/14/25 Rx tablet Allergies Allergy/AdvReac Type Severity Reaction Status Date / Time Penicillins Allergy Intermediate Hives Verified 02/26/25 13:14 amoxicillin AdvReac Intermediate Hives Verified 02/26/25 13:14 Review of Systems Review of Systems Narrative: All else reviewed and otherwise unremarkable except as noted in the history and physical. Exam Vital Signs (past 8 hours): - 02/26/25 13:14 02/26/25 15:39 02/26/25 15:41 Temperature 99.1 F Pulse Rate 114 H 104 H 102 H Respiratory Rate 16 20 Blood Pressure 155/93 H 179/95 H 170/95 H Pulse Oximetry 97 100 98 Oxygen Delivery Method Room Air Room Air 02/26/25 16:00 02/26/25 16:30 02/26/25 16:30 Temperature Pulse Rate 107 H 103 H Respiratory Rate 20 Blood Pressure 176/101 H Pulse Oximetry 99 98 Oxygen Delivery Method 02/26/25 17:04 Temperature Pulse Rate 101 H Respiratory Rate Blood Pressure Pulse Oximetry Oxygen Delivery Method Oxygen Delivery Method Room Air Narrative Exam Narrative: NAD, alert and oriented, fluent speech, calm. Normocephalic skull, EOMI, anicteric sclera, symmetric pupils. Oropharynx unremarkable, no droop. Neck supple, midline trachea, no adenopathy. Lungs clear, normal rate and effort. Heart regular, no murmur gallop or rub. Abdomen is soft, non distended and non tender. Extremities are free of edema. Skin is free of rash or lesions. Joints are not swollen or deformed. Judgment appears to be normal. Objective Labs 02/26/25 13:14 02/26/25 13:14 Labs: Laboratory Results - last 24 hr 02/26/25 02/26/25 13:14 16:04 WBC 11.1 H RBC 4.07 Hgb 11.4 L Hct 35.2 L MCV 86.6 MCH 28.1 MCHC 32.5 RDW 19.4 H Plt Count 352 Neut % (Auto) 83.9 H Lymph % (Auto) 9.3 L [place] % (Auto) 6.1 Eos % (Auto) 0.1 L Baso % (Auto) 0.6 Neut # (Auto) 9300 H Lymph # (Auto) 1000 L [place] # (Auto) 700 Eos # (Auto) 0 Baso # (Auto) 100 Sodium 133 L Potassium 3.9 Chloride 101 Carbon Dioxide 10 L BUN 8 Creatinine 0.73 Estimated GFR > 60 BUN/Creatinine Ratio 11.0 Glucose 161 H Lactate 8.6 H* 0.7 Calcium 9.3 Total Bilirubin 1.0 AST 115 H ALT 42 H Alkaline Phosphatase 94 Total Creatine Kinase 379 H Troponin I < 0.012 Total Protein 8.7 H Albumin 5.0 Globulin 3.7 Albumin/Globulin Ratio 1.4 Procalcitonin 0.043 Ethyl Alcohol < 10 Assessment & Plan Assessment & Plan narrative: 1. Alcohol withdrawal, Active. 2. Withdrawal seizures, Active. 3. Fever (no other Sx) PLAN: -CIWA, thiamine and folate. -Phenobarb Q8Hr scheduled -Seizure precautions -CT head R/O occult trauma. -chest x-ray, blood cultures, UA, Tylenol as needed. We will monitor without antibiotics initially. Anticipate 2 midnights in the hospital, supports inpatient status. Full resuscitation. Time-Based Coding :: 35 min spent with patient and on the chart (including review of chart, obtaining history, exam, reviewing outside data, placing orders, documenting exam and treatment plan, and counseling patient) on 02/26. Quality MIPS - Admit I confirm the patient?s Advance Care Plan is present, Code status is documented, Surrogate decision maker is in patient?s record [If Yes, STOP here]: Yes MIPS - Meds 'Current medications' to include all prescriptions, [id number] products, herbals, cannabis/cannabidiol products, and vitamin/mineral/dietary (nutritional) supplements. I have utilized all available resources to obtain, update, or review the patient?s current medications. [If Yes, STOP here]: Yes
--- NOTE | 2025-02-26 17:30 | DI.CT.S_ITS ---
PROCEDURE: CT HEAD/BRAIN WO CON INDICATIONS: seizure TECHNIQUE: Noncontrast 4.5 mm thick angled axial sections acquired from the foramen magnum to the vertex, with coronal and sagittal reformats. For radiation dose reduction, the following was used: automated exposure control, adjustment of mA and/or kV according to patient size. COMPARISON: [facility], CT, CT HEAD/BRAIN WO CON, 01/12/2025, 14:21. [facility], CT, CT HEAD/BRAIN WO CON, 06/09/2023, 0:30. FINDINGS: Image quality: Diagnostic. CSF spaces: Basal cisterns are patent. No extra-axial fluid collections. Ventricles are normal in size and shape. Brain: No midline shift. No intracranial mass effect or hemorrhage. [place]- white matter interface is normal. Skull and face: Calvarium and visualized facial bones are intact, without suspicious lesions. Sinuses: Visualized sinuses and mastoids are clear. IMPRESSION: No acute intracranial pathology. Approved by: Florentin Lofton M.D. on 02/26/2025 at 18:18
[2025-02-26 17:38] LABS: Ur Creatinine Normal (Normal); Ur Specific Gravity Normal (Normal); Urine MDMA Negative (Negative); Urine Methamphetamines Negative (Negative); Urine THC Positive (Negative); Urine Tricyclic Antidepressant Negative (Negative); Urine pH Normal (Normal)
--- NOTE | 2025-02-26 18:28 | DI.RAD.S_ITS ---
PROCEDURE: XR CHEST 1V INDICATIONS: fever TECHNIQUE: One view of the chest was acquired. COMPARISON: None. FINDINGS: Surgical changes and devices: None. Lungs and pleura: Lungs are clear. No pleural effusions or pneumothorax. Mediastinum: Mediastinal contours appear normal. Heart size is normal. Bones and chest wall: No suspicious bony lesions. Overlying soft tissues appear unremarkable. IMPRESSION: No acute cardiopulmonary abnormality is seen. Approved by: Florentin Lofton M.D. on 02/26/2025 at 19:20
[2025-02-26] MEDS: SODIUM CHLORIDE 0.9% 1,000 ML 100 ML IV (18:33)
[2025-02-26] MEDS: ONDANSETRON 4 MG/2 ML INJ IV (18:33)
--- NOTE | 2025-02-26 18:34 | PC.NURSE ---
Phenobarbital 65mg IV given as ordered. See MAR.
[2025-02-26 19:43] LABS: Coronavirus NL 63 Not Detected (Not Detect); SARS- CoV-2 Not Detected (Not Detecte)
[2025-02-26 20:22] LABS: MRSA (Nasal) PCR NOT DETECTED (Not Detect)
[2025-02-26] MEDS: HEPARIN 5,000 UNIT/ML VIAL 5000 UNIT SUBCUT (20:43)
[2025-02-26] MEDS: ACETAMINOPHEN 325 MG TABLET 650 MG PO (20:52)
[2025-02-27] VITALS (18 sets, daily range): BP systolic 137–155; BP diastolic 75–92; PULSE 78–97; RESP 15–33; TEMP 36.3–36.8; O2SAT 95–100
[2025-02-27] MEDS: SODIUM CHLORIDE 0.9% 1,000 ML 100 ML IV (03:55)
[2025-02-27 05:20] LABS: Add Manual Diff / Slide Review NO; Hematocrit 31.9 % (36-46); Hemoglobin 10.5 g/dL (12.0-16.0); Lymphocytes Absolute Auto 1500 /uL (1100-4500); Mean Corpuscular HGB Conc 33.1 % (30-36); Mean Corpuscular Hemoglobin 28.7 PG (26-34); Mean Corpuscular Volume 86.8 fL (80-100); Platelet Count 253 X10^3/uL (150-400)
[2025-02-27 05:40] LABS: Alanine Aminotransferase 25 IU/L (<35); Albumin 4.1 g/dL (3.5-5.0); Albumin Globulin Ratio 1.3 (1.0-2.8); Alkaline Phosphatase 67 U/L (38-126); Blood Urea Nitrogen 6 mg/dL (7-17); Calcium 8.0 mg/dL (8.4-10.2); Carbon Dioxide 24 mmol/L (22-32); Chloride 102 mmol/L (98-107); Estimated Glomerular Filt Rate > 60 mL/min (>60); Globulin 3.1 g/dL (1.7-4.1); Glucose 86 mg/dL (70-99); HEMOLYSIS < 15 (0-50); Potassium 3.2 mmol/L (3.4-5.1); Sodium 133 mmol/L (137-145); Total Protein 7.2 g/dL (6.3-8.2)
[2025-02-27] MEDS: PANTOPRAZOLE DR 40 MG TABLET PO (06:40)
--- NOTE | 2025-02-27 06:59 | PC.NURSE ---
Anti Air Warfare Operations Officer Note-Patient slept throughout the night, wakes easily, oriented x3, CIWA 0-5, no seizure activity. Phenobarbitol given as scheduled. Oxycodone and Tylenol given for headache. VSS, afebrile.
[2025-02-27 08:39] LABS: Magnesium 1.9 mg/dL (1.6-2.3)
--- NOTE | 2025-02-27 09:32 | CM.DANOTE ---
Initial DCP Assessment Note. Review EMR and PT Interview. Met with patient at bedside to discuss discharge needs.PT is alert x 4 sitting up in bed. No acute distress. Pleasant, good eye contact, and responds appropriately. CIWA was documented as 1 by nursing today. Patient lives independently with her , Brooks. Brooks will transport home upon discharge. They live in a 2 story home. Detox info provided. See below. PCP: Dr. Bijal Johns Summary & Plan:?34 y/o female arrived by EMS to ED c/o ETOH and Sz. Admitted INPT ICU Dx. ETOH and Sz. Plan: Monitor for Sz, CIWA, and electrolyte replacement as needed. Diet as tolerated. Discharge in 2-3 days Discharge Planning/Care Management CM Discharge Assessment Start: 02/26/25 16:15 Freq: Status: Active Protocol: Document 02/27/25 09:26 SM (Rec: 02/27/25 09:32 SM [id number]) Discharge Planning Assessment Assigned Discharge Blanquita Sierra RN CM Broiler Manager Provider Dr. Bijal Johns Insurance BCBS Advance Directives? No Advance Directives No on File History Provided By Patient,Family Member,Medical Record Has Patient been No admitted in last 30 days? Prior Living House Arrangements Household Members spouse Type of Drives own vehicle transporation used prior to admit Independent with ADL Yes 's Is patient alert and Yes oriented? Caregiver for No Another Comment [facility], [facility] and [facility] [place], provided. Comment see prior note Barriers to No Discharge Discharge Plan Home Referrals Initiated None needed Additional Comment AA and outpatient TRENT resources provided to patient and spouse. Review Status In Process Please Provide Date 02/24/25 Initial DC Assessment Was Performed Next Review Type Continued Stay Review
[2025-02-27] MEDS: HEPARIN 5,000 UNIT/ML VIAL 5000 UNIT SUBCUT ×2 (10:04→20:29)
[2025-02-27] MEDS: POTASSIUM CHLORIDE 20 MEQ TAB 40 MEQ PO ×2 (10:05→14:16)
[2025-02-27] MEDS: MULTIVITAMIN 1 TABLET 1 TAB PO (10:05)
[2025-02-27] MEDS: VENLAFAXINE ER 75 MG CAP 225 MG PO (11:02)
[2025-02-27] MEDS: THIAMINE 100 MG TABLET PO (11:02)
[2025-02-27] MEDS: FOLIC ACID 1 MG TABLET PO (11:02)
--- NOTE | 2025-02-27 12:25 | PM.PN.1 ---
Subjective Subjective Interval history: 34 yo female w/alcohol dependence who was admitted w/alcohol w/d seizure. PMH: alcohol dependence, depression, Class 1 obesity. Patient reports she is feeling significantly better today. She has a mild headache which she describes as a 4/10. No nausea. No abdominal pain. No tremors. 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 She wonders if she can discharge home today. Exam Vital Signs (past 8 hours): - 02/26/25 13:14 02/26/25 15:39 02/26/25 15:41 Temperature 99.1 F Pulse Rate 114 H 104 H 102 H Respiratory Rate 16 20 Blood Pressure 155/93 H 179/95 H 170/95 H Pulse Oximetry 97 100 98 Oxygen Delivery Method Room Air Room Air 02/26/25 16:00 02/26/25 16:30 02/26/25 16:30 Temperature Pulse Rate 107 H 103 H Respiratory Rate 20 Blood Pressure 176/101 H Pulse Oximetry 99 98 Oxygen Delivery Method 02/26/25 17:04 02/26/25 17:30 02/26/25 18:00 Temperature Pulse Rate 101 H 108 H 101 H Respiratory Rate 24 21 Blood Pressure Pulse Oximetry 97 98 Oxygen Delivery Method 02/26/25 19:05 Temperature Pulse Rate Respiratory Rate Blood Pressure Pulse Oximetry Oxygen Delivery Method Room Air Oxygen Delivery Method Room Air Narrative Exam Narrative: GEN: Adult female, Alert and oriented x 3, NAD HEENT:NC, Face symmetric CHEST: Respiratory excursions symmetric, CTAB CV: RRR, no M/R/G ABD: Soft, obese, NT/ND, BT present in all 4 quadrants, body habitus limits exam EXTR: warm, well perfused, no C/C/E SKIN: warm and dry, no rash NEURO: Alert and oriented x 3, nonfocal Objective Labs 02/27/25 04:27 02/27/25 04:27 Labs: Laboratory Results - last 24 hr 02/26/25 02/26/25 02/26/25 13:14 16:04 17:10 WBC 11.1 H RBC 4.07 Hgb 11.4 L Hct 35.2 L MCV 86.6 MCH 28.1 MCHC 32.5 RDW 19.4 H Plt Count 352 Neut % (Auto) 83.9 H Lymph % (Auto) 9.3 L [place] % (Auto) 6.1 Eos % (Auto) 0.1 L Baso % (Auto) 0.6 Neut # (Auto) 9300 H Lymph # (Auto) 1000 L [place] # (Auto) 700 Eos # (Auto) 0 Baso # (Auto) 100 Sodium 133 L Potassium 3.9 Chloride 101 Carbon Dioxide 10 L BUN 8 Creatinine 0.73 Estimated GFR > 60 BUN/Creatinine Ratio 11.0 Glucose 161 H Lactate 8.6 H* 0.7 Calcium 9.3 Total Bilirubin 1.0 AST 115 H ALT 42 H Alkaline Phosphatase 94 Total Creatine Kinase 379 H Troponin I < 0.012 Total Protein 8.7 H Albumin 5.0 Globulin 3.7 Albumin/Globulin Ratio 1.4 Procalcitonin 0.043 Nasal Screen MRSA (PCR) U Opiates 300ng/mL cut Negative Ur Oxycodone Screen Negative Urine Methadone Screen Negative Ur Barbiturates Screen Negative U Tricyclic Antidepress Negative Ur Phencyclidine Scrn Negative Ur Amphetamines Screen Negative U Methamphetamines Scrn Negative Ur MDMA Scrn (Ecstasy) Negative U Benzodiazepines Scrn Positive H Urine Cocaine Screen Negative U Marijuana (THC) Screen Positive H Urine pH Normal Urine Specific [place] Normal Ethyl Alcohol < 10 Ur Creatinine Normal Chlamy pneumoniae PCR Adenovirus (PCR) B. pertussis DNA (PCR) B.parapertussis DNA PCR Coronavirus OC43 (PCR) Coronavirus HKU1 (PCR) Coronavirus 229E (PCR) SARS-CoV-2 (PCR) Coronavirus NL63 (PCR) Human Metapneumovir PCR Influenza Type A (PCR) Influenza Type B (PCR) M. pneumoniae (PCR) Parainfluenza 1 (PCR) Parainfluenza 2 (PCR) Parainfluenza 3 (PCR) Parainfluenza 4 (PCR) RSV (PCR) Entero/Rhino (PCR) 02/26/25 02/26/25 18:30 18:52 WBC RBC Hgb Hct MCV MCH MCHC RDW Plt Count Neut % (Auto) Lymph % (Auto) [place] % (Auto) Eos % (Auto) Baso % (Auto) Neut # (Auto) Lymph # (Auto) [place] # (Auto) Eos # (Auto) Baso # (Auto) Sodium Potassium Chloride Carbon Dioxide BUN Creatinine Estimated GFR BUN/Creatinine Ratio Glucose Lactate Calcium Total Bilirubin AST ALT Alkaline Phosphatase Total Creatine Kinase Troponin I Total Protein Albumin Globulin Albumin/Globulin Ratio Procalcitonin Nasal Screen MRSA (PCR) Not detected U Opiates 300ng/mL cut Ur Oxycodone Screen Urine Methadone Screen Ur Barbiturates Screen U Tricyclic Antidepress Ur Phencyclidine Scrn Ur Amphetamines Screen U Methamphetamines Scrn Ur MDMA Scrn (Ecstasy) U Benzodiazepines Scrn Urine Cocaine Screen U Marijuana (THC) Screen Urine pH Urine Specific [place] Ethyl Alcohol Ur Creatinine Chlamy pneumoniae PCR Not detected Adenovirus (PCR) Not detected B. pertussis DNA (PCR) Not detected B.parapertussis DNA PCR Not detected Coronavirus OC43 (PCR) Not detected Coronavirus HKU1 (PCR) Not detected Coronavirus 229E (PCR) Not detected SARS-CoV-2 (PCR) Not detected Coronavirus NL63 (PCR) Not detected Human Metapneumovir PCR Not detected Influenza Type A (PCR) Not detected Influenza Type B (PCR) Not detected M. pneumoniae (PCR) Not detected Parainfluenza 1 (PCR) Not detected Parainfluenza 2 (PCR) Not detected Parainfluenza 3 (PCR) Not detected Parainfluenza 4 (PCR) Not detected RSV (PCR) Not detected Entero/Rhino (PCR) Not detected PFSH Medical History Alcohol use disorder Social History household members: spouse Smoking Status: Never smoker alcohol intake: current Assessment & Plan Assessment & Plan narrative: 1. Alcohol w/d seizure Patient was admitted and placed on the alcohol withdrawal protocol. She remains on IV phenobarbital. Her CIWA scores were initially elevated as high as 10 yesterday afternoon but have come down to 0-1 this morning. Will continue IV phenobarb taper. She has not required any as needed lorazepam. Continue multivitamin, thiamine, folate. 2. Alcohol dependence Discussed her plan moving forward. She will continue to go to AA meetings. She is receptive to meeting with care management to review outpatient resources. 3. Fever/diarrhea Her fever has resolved. She denies any ill symptoms presently. Will continue to monitor. 4. Anemia Hemoglobin is 10.5. This is fairly consistent with her baseline. Likely due to combination myelosuppression from alcohol and regular blood loss from being a menstruating female. 5. Depression Resume venlafaxine Code status Full Prophy On heparin. Dispo Anticipate discharge home tomorrow. Will transition to acute care today. Time-Based Coding :: [TOTAL MINUTES] spent with patient and on the chart (including review of chart, obtaining history, exam, reviewing outside data, placing orders, documenting exam and treatment plan, and counseling patient) on [DATE]. Quality VTE Deep Vein Thrombosis/Pulmonary Embolism Present on Admission: No
--- NOTE | 2025-02-27 18:29 | PC.NURSE ---
Day Shift Note Patient is oriented x3. Mostly sleeping this shift but wakes up for meals or visitors. CIWA MAX 6 this shift, did not require prn medications. Pt is impulsive, not using call light appropriately but stops when bed alarm (which is on) alarms. SBA, steady on feet. Denies pain. Call light is within reach.
[2025-02-28 01:00] VITALS: BP 148/75; PULSE 81; RESP 16; TEMP 36.7; O2SAT 99
[2025-02-28 05:00] VITALS: BP 160/107; PULSE 82; RESP 16; TEMP 36.2; O2SAT 98
[2025-02-28 05:17] LABS: Add Manual Diff / Slide Review NO; Hematocrit 34.1 % (36-46); Hemoglobin 11.2 g/dL (12.0-16.0); Lymphocytes Absolute Auto 1600 /uL (1100-4500); Mean Corpuscular HGB Conc 32.7 % (30-36); Mean Corpuscular Hemoglobin 28.7 PG (26-34); Mean Corpuscular Volume 87.6 fL (80-100); Platelet Count 259 X10^3/uL (150-400)
[2025-02-28 05:30] LABS: Alanine Aminotransferase 26 IU/L (<35); Albumin 4.2 g/dL (3.5-5.0); Albumin Globulin Ratio 1.2 (1.0-2.8); Alkaline Phosphatase 68 U/L (38-126); Blood Urea Nitrogen 3 mg/dL (7-17); Calcium 8.9 mg/dL (8.4-10.2); Carbon Dioxide 24 mmol/L (22-32); Chloride 101 mmol/L (98-107); Estimated Glomerular Filt Rate > 60 mL/min (>60); Globulin 3.5 g/dL (1.7-4.1); Glucose 85 mg/dL (70-99); HEMOLYSIS < 15 (0-50); Potassium 3.9 mmol/L (3.4-5.1); Sodium 134 mmol/L (137-145); Total Protein 7.7 g/dL (6.3-8.2)
[2025-02-28 08:00] VITALS: BP 136/82
[2025-02-28] MEDS: FOLIC ACID 1 MG TABLET PO (08:54)
[2025-02-28] MEDS: MULTIVITAMIN 1 TABLET 1 TAB PO (08:54)
[2025-02-28] MEDS: HEPARIN 5,000 UNIT/ML VIAL 5000 UNIT SUBCUT (08:54)
[2025-02-28] MEDS: THIAMINE 100 MG TABLET PO (08:54)
[2025-02-28] MEDS: VENLAFAXINE ER 75 MG CAP 225 MG PO (08:54)
--- NOTE | 2025-02-28 08:55 | PC.NURSE ---
Med administration note: phenobarbital 65m/mL IV given as charted in MAR.
[2025-02-28 12:00] VITALS: BP 136/87; PULSE 94; RESP 18; O2SAT 99
--- NOTE | 2025-02-28 12:12 | PC.NURSE ---
Addendum entered by Evy Pardo RN 02/28/25 13:31: Pt ambulated to private vehicle with PCT and spouse at approximately 1250 Original Note: Discharge: Pt agreeable to discharge. Pt provided with education on worsening s/s and when to return to the ED, stroke s/s, ensured pt had outpatient resources for TRENT. Pt educated on next doses for medications. Care management referred to for note for work. IV discontinued. Awaiting note for work for discharge. Care ongoing.
--- NOTE | 2025-02-28 14:22 | CM.DPC ---
DCP Discharge Home Per MD, pt is medically stable to discharge home today as pt also hopeful to be at work tomorrow. Per RN, spouse asking for Medical Excuse for Work for himself for pt's admission to the hospital and TOOL AND DIE REPAIRER [employer] kindly completed for pt and spouse. Pt given ETOH resources during last admission and this admission. Spouse plans to provide transport home. FEDERICA Spann
--- NOTE | 2025-02-28 20:45 | PM.DS.1 ---
History of Present Illness History of Present Illness Chief complaint: Seizure Narrative: Per H&P: She was a 34-year-old female with history of alcohol use disorder. She was had no alcohol for 2 days and then presented to the ED with 2 seizures EN route. She does have a history of withdrawal seizures. She was treated with phenobarbital in the emergency department and a CT of the head was unremarkable. She was also given symptomatic medication and then sent to the horn. Upon arrival she was pleasant, and comfortable. She was noted to have a fever but denies recent URI symptoms including rhinorrhea, or cough. No dysuria. She was had some diarrhea over the last day. No abdominal pain, or vomiting. She lives in the [facility] with her . Last alcohol was about 2 evenings ago and she does state that she drinks 2 relatively large bowels of wine a day. She has been drinking since college but has been drinking heavily for about the last 2 years since having a falling out with friends. She was never had sober time to speak of or been in treatment. She has been to AA meetings. Her does not drink around her and is described as not having an alcohol problem. Discharge Providers Provider Date of admission: 02/26/25 16:09 Discharge Date: 02/28/25 Primary care physician: BÁRBARA Mcgraw Discharge provider: Leanne Espinosa MD Summary Hospital Course Discharge Diagnosis: 1. Alcohol withdrawal seizure, resolved 2. Alcohol dependence 3. Fever/diarrhea, resolved 4. Anemia, stable 5. Depression, stable Hospital Course: Patient was admitted with an alcohol withdrawal seizure. She was initiated on IV phenobarbital and admitted to the intensive care unit. She had no recurrent symptoms or signs of withdrawal and had no further seizure activity. CIWA scores remained low. She required no lorazepam for the duration of her hospital stay. She did meet with care management for outpatient resources. Her plan is to follow up with AA for ongoing outpatient support. She is discharged in stable condition. Status at Discharge Cognitive/behavioral status at discharge: at baseline, oriented Functional status at discharge: independent ambulation Overall status at discharge: patient is back to baseline Time Spent with Patient Time spent: Less than 30 minutes Exam Vital Signs (past 8 hours): Oxygen Delivery Method Room Air Oxygen Flow Rate 0 Narrative Exam Narrative: GEN: Adult female, Alert and oriented x 3, NAD HEENT:NC, Face symmetric CHEST: Respiratory excursions symmetric, CTAB CV: RRR, no M/R/G ABD: Soft, obese, NT/ND, BT present in all 4 quadrants, body habitus limits exam EXTR: warm, well perfused, no C/C/E SKIN: warm and dry, no rash NEURO: Alert and oriented x 3, nonfocal Objective Labs 02/28/25 04:51 02/28/25 04:51 Labs: Laboratory Results - last 24 hr 02/28/25 04:51 WBC 7.1 RBC 3.89 L Hgb 11.2 L Hct 34.1 L MCV 87.6 MCH 28.7 MCHC 32.7 RDW 19.5 H Plt Count 259 Neut % (Auto) 66.3 Lymph % (Auto) 22.1 L [place] % (Auto) 7.9 Eos % (Auto) 2.6 Baso % (Auto) 1.1 Neut # (Auto) 4700 Lymph # (Auto) 1600 [place] # (Auto) 600 Eos # (Auto) 200 Baso # (Auto) 100 Sodium 134 L Potassium 3.9 Chloride 101 Carbon Dioxide 24 BUN 3 L Creatinine 0.58 Estimated GFR > 60 BUN/Creatinine Ratio 5.2 L Glucose 85 Calcium 8.9 Total Bilirubin 0.9 AST 63 H ALT 26 Alkaline Phosphatase 68 Total Protein 7.7 Albumin 4.2 Globulin 3.5 Albumin/Globulin Ratio 1.2 [facility] Medical History Alcohol use disorder Social History household members: spouse Smoking Status: Never smoker alcohol intake: current Discharge Plan Discharge Plan Patient Disposition: Home Provider Discharge Comment: You were admitted with alcohol withdrawal seizures. You were placed on phenobarbital, which controlled your withdrawal. I recommend you only work a 1/2 day tomorrow and you can return to your full duties on Saturday. Please continue to work towards your sobriety and continue with AA and follow up with the outpatient resources provided to you during this hospital stay. Return to the ED: Increased withdrawal symptoms such as tremors, sweating, hallucinations, headaches, nausea or vomiting. Inability to hold down food/fluid/medications. Discharge orders & Medications Prescriptions: Continued venlafaxine 150 mg capsule,extended release 24hr 150 mg PO DAILY hydroxyzine HCl 25 mg tablet 25 mg PO Q6H PRN (Reason: PRN) venlafaxine 75 mg capsule,extended release 24hr 75 mg PO DAILY Rx Instructions: Take with 150 mg tab to total 225 mg. thiamine HCl (vitamin B1) 100 mg tablet 100 mg PO BID Qty: 60 0RF Follow up/Referrals: Bijal Johns ARNP [Primary Care Provider, Medical] Discharge Health Status Multidrug resistant organism: No MDRO Diet/Activity/Treatments Diet: Diet as Tolerated Activity: As tolerated Visit Report/Discharge Packet Instructions: Alcohol Withdrawal Stand Alone Forms: Patient Portal/API, Stroke Signs & Symptoms Discharge Data Primary Care Provider: Bijal Johns Quality VTE Deep Vein Thrombosis/Pulmonary Embolism Present on Admission: No
== END 2025-02-28 12:50 | disposition home or self-care (01) | DRG 897 ==
LOC: ED 16:05 → AC 16:09 → ICU 16:45
PROVIDERS: Emergency Medicine; Family Medicine; Admitting Provider Hospitalist; Emergency Provider Emergency Medicine; PCP Nurse Practitioner Family; Referring Provider Emergency Medicine; Visit Provider Hospitalist
DX: F10.239 Alcohol dependence with withdrawal, unspecified (principal); G40.89 Other seizures; R50.9 Fever, unspecified; E66.811 Obesity, class 1; R19.7 Diarrhea, unspecified; D64.9 Anemia, unspecified; F32.A Depression, unspecified; Y90.0 Blood alcohol level of less than 20 mg/100 ml; Z88.0 Allergy status to penicillin; Z68.37 Body mass index [BMI] 37.0-37.9, adult
CPT/HCPCS: 36415; 70450; 71045; 80053; 80305; 80320; 82550; 83605; 83735; 84145; 84484; 85025; 87040; 87633; 87797; 96365; 96375; 99284; J1644; J1885; J2405; J2560

== ENCOUNTER 2025-05-12 11:57 | Inpatient (IN) | payer BC, SELFPAY ==
[2025-02-26 18:58] VITALS: BMI 30.1
[2025-05-12] VITALS (44 sets, daily range): BP systolic 88–183; BP diastolic 51–101; PULSE 82–122; RESP 14–80; TEMP 36.7; O2SAT 93–100; BMI 30.1; BMI 33.2
[2025-05-12] MEDS: THIAMINE 100 MG in SODIUM CHLORIDE 0.9% 100 ML 404 MG IV (13:15)
[2025-05-12] MEDS: SODIUM CHLORIDE 0.9% 1,000 ML 1000 ML IV (13:16)
--- NOTE | 2025-05-12 13:23 | PC.NURSE ---
1238: Patient brought back by bandsaw operator and sat in chair in hallway while room made ready for her. She was with her . This RN sees patient stiffing up throughout her whole body. This RN, provider Karly and KANNAN Lipscomb help lower patient to ground in a controlled manner protecting head and neck. Rapid response called and patient overhead. Oxygen placed on patient and patient moved to room 2. Patient sweaty, thrashing about the bed and grabbing, and kicking at staff. Provider Ynes remains at bedside.
[2025-05-12 13:26] LABS: Add Manual Diff / Slide Review NO; Hematocrit 39.5 % (36-46); Hemoglobin 12.4 g/dL (12.0-16.0); Lymphocytes Absolute Auto 2800 /uL (1100-4500); Mean Corpuscular HGB Conc 31.3 % (30-36); Mean Corpuscular Hemoglobin 27.6 PG (26-34); Mean Corpuscular Volume 88.2 fL (80-100); Platelet Count 369 X10^3/uL (150-400)
--- NOTE | 2025-05-12 13:31 | PC.NURSE ---
1248 patient heard yelling outside of room 11 while sitting in a chair, I went around the corner and saw patient stiff and unresponsive, I lowered patient to the ground with ELIDIA gomez while a medical alert was called overhead. MD Quick at patients side with other staff to assist with getting onto a stretcher and into room 2.
[2025-05-12 13:34] LABS: Alanine Aminotransferase 35 IU/L (<35); Albumin 5.2 g/dL (3.5-5.0); Albumin Globulin Ratio 1.3 (1.0-2.8); Alkaline Phosphatase 82 U/L (38-126); Blood Urea Nitrogen 7 mg/dL (7-17); Calcium 9.9 mg/dL (8.4-10.2); Carbon Dioxide 14 mmol/L (22-32); Chloride 103 mmol/L (98-107); Creatine Kinase 613 U/L (30-135); Estimated Glomerular Filt Rate > 60 mL/min (>60); Ethanol (ETOH) < 10 mg/dL (<10); Globulin 3.9 g/dL (1.7-4.1); Glucose 145 mg/dL (70-99); HEMOLYSIS 44 (0-50); Magnesium 2.0 mg/dL (1.6-2.3); Potassium 5.1 mmol/L (3.4-5.1); Sodium 139 mmol/L (137-145); Total Protein 9.1 g/dL (6.3-8.2)
[2025-05-12 13:35] LABS: Lactate (Lactic Acid) 8.9 mmol/L (0.7-2.1)
[2025-05-12 13:46] LABS: Troponin I < 0.012 ng/mL (0.01-0.034)
--- NOTE | 2025-05-12 13:47 | ED.SEIZURE ---
HPI - Seizure General Chief Complaint: Toxicology Problem Stated Complaint: Seizure, this morning Time Seen by Provider: 05/12/25 12:20 Source: patient and family Mode of arrival: Ambulatory Limitations: no limitations History of Present Illness HPI Narrative: Ms. Shepard is a pleasant 35-year-old female with a past medical history of alcohol use disorder, seizures who presents to the emergency department via private vehicle with her for concern of a seizure at 4:00 a.m. today. Patient has been sober from alcohol for about 1 month but it appears that she did drink alcohol yesterday evening. Around 4:00 a.m. her witnessed her having a seizure that lasted about 60 seconds and which her body was very stiff and rigid. states that she was able to answer questions after the seizure however she has been very confused all morning, she is unsure of what she drank yesterday, she does not recall the seizure. She denies any pain, vomiting, diarrhea, fevers, chills. Both her and her report that she was taking a seizure medicine however she ran out of it about a week ago, she does not know the name of the medication. She denies any other drug use except for occasional marijuana. Related Data Home Medications ?Medication ?Instructions ?Recorded ?Confirmed hydroxyzine HCl 25 mg tablet 25 mg PO Q6H PRN PRN 06/08/23 05/12/25 venlafaxine 150 mg 150 mg PO DAILY 06/08/23 05/12/25 capsule,extended release 24 hr venlafaxine 75 mg capsule,extended 75 mg PO DAILY 01/13/25 05/12/25 release 24 hr levetiracetam 500 mg tablet 500 mg PO BID 05/12/25 05/12/25 propranolol 60 mg capsule,24 60 mg PO DAILY 05/12/25 05/12/25 hr,extended release Allergies Allergy/AdvReac Type Severity Reaction Status Date / Time Penicillins Allergy Intermediate Hives Verified 05/12/25 12:24 amoxicillin AdvReac Intermediate Hives Verified 05/12/25 12:24 Review of Systems Review of Systems ROS Unobtainable: All systems reviewed & are unremarkable except as noted in HPI and below Patient History Medical History Alcohol use disorder Social History (Reviewed 05/12/25 @ 13:54 by ELIZABETH Alvarez household members: spouse Smoking Status: Current every day smoker alcohol intake: current Smoking Status: Current every day smoker alcohol intake frequency: holidays/special occasions only Exam Narrative Exam Narrative: GENERAL: 35 year old patient appears stated age. Well-developed patient, in no acute distress. Calm, Cooperative. HEAD: Atraumatic. Normocephalic. EYES: PERRL. Extraocular motions intact. No scleral icterus. No injection or drainage. ENT: Nose without bleeding, purulent drainage. No tongue lacerations. Airway patent. NECK: Trachea midline. Cervical ROM intact. CARDIOVASCULAR: Regular rate and rhythm. RESPIRATORY: ?Nonlabored respirations. ?Speaking in clear, full sentences. ?Clear to auscultation. Breath sounds equal bilaterally. No wheezes, rales, or rhonchi. ? GASTROINTESTINAL: Abdomen soft, non-tender, nondistended. EXTREMITIES: No LE edema. NEURO: AOx3. Feels confused, can not recall events of last night, but is able to answer questions appropriately. ?Clear speech. ?Moves all 4 extremities appropriately. SKIN: No rash or erythema of visible areas. Initial Vital Signs Initial Vital Signs: Vital Signs Temperature 98.1 F 05/12/25 12:24 Pulse Rate 82 05/12/25 12:24 Respiratory Rate 14 05/12/25 12:24 Blood Pressure 158/91 H 05/12/25 12:24 Pulse Oximetry 98 05/12/25 12:24 Oxygen Delivery Method Room Air 05/12/25 12:24 Course Orders Ordered: ED Orders 05/12/25 12:32 EKG-12 Lead Stat 05/12/25 12:[address] [facility] - Latrine Cleaner Stat 05/12/25 12:45 Urine Drug Screen, Rapid Stat EKG-12 Lead Stat 05/12/25 13:07 CBC Auto Diff [Complete Blood Count AUTO DIFF] Stat CMP [Comprehensive Metabolic Panel] Stat Ethanol (ETOH) Stat Ethanol (ETOH) Stat Lactate (Lactic Acid) Stat Magnesium Stat Procalcitonin Stat TSH w/ Reflex to FT4 Stat Troponin & CK Cardiac Panel Stat 05/12/25 14:36 EKG-12 Lead Stat Diazepam (Diazepam 10 Mg/2 Ml Syringe) 10 mg IV Q5MIN PRN PRN Reason: Seizure Activity dexmedeTOMIDine in 0.9 % NaCL (Precedex) 400 mcg in 100 mls @ 3.856 mls/hr IV TITRATE STA; Protocol Stop: 05/13/25 17:24 Last Titration: 05/12/25 19:08 Dose: 0.8 mcg/kg/hr, 15.422 mls/hr Documented By: Titration: 05/12/25 17:37 Dose: 1 mcg/kg/hr, 19.278 mls/hr Documented By: Titration: 05/12/25 17:16 Dose: 0.8 mcg/kg/hr, 15.422 mls/hr Documented By: Titration: 05/12/25 17:07 Dose: 0.4 mcg/kg/hr, 7.711 mls/hr Documented By: Admin: 05/12/25 16:27 Dose: 0.2 mcg/kg/hr, 3.856 mls/hr Documented By: LIT Dextrose/Sodium Chloride (Dextrose 5%-0.9% Ns) 1,000 mls @ 100 mls/hr IV CONT CHRISTIANO Last Admin: 05/12/25 19:00 Dose: 100 mls/hr Documented By: LIT Levetiracetam 1,000 mg/ Sodium (Chloride) 110 mls @ 440 mls/hr IV Q12H CHRISTIANO Naloxone HCl (Naloxone 0.4 Mg/Ml Vial) 0.2 mg IV Q2MIN PRN PRN Reason: Opiate Reversal Discontinued Medications Thiamine HCl 100 mg/ Sodium (Chloride) 101 mls @ 404 mls/hr IV NOW ONE Stop: 05/12/25 12:33 Last Infusion: 05/12/25 13:35 Dose: Infused Documented By: Admin: 05/12/25 13:15 Dose: 404 mls/hr Documented By: RAHUL Sodium Chloride (Normal Saline 0.9%) 1,000 mls @ 1,000 mls/hr IV BOLUS ONE Stop: 05/12/25 13:31 Last Infusion: 05/12/25 16:52 Dose: Infused Documented By: Admin: 05/12/25 13:16 Dose: 1,000 mls/hr Documented By: RAHUL Levetiracetam 2,000 mg/ Sodium (Chloride) 120 mls @ 480 mls/hr IV NOW ONE Stop: 05/12/25 12:45 Last Infusion: 05/12/25 13:28 Dose: Infused Documented By: Admin: 05/12/25 12:57 Dose: 480 mls/hr Documented By: RAHUL Lorazepam (Lorazepam 2 Mg/Ml Inj) 2 mg IV NOW ONE Stop: 05/12/25 12:59 Last Admin: 05/12/25 13:00 Dose: 2 mg Documented By: RAHUL Lorazepam (Lorazepam 2 Mg/Ml Inj) 2 mg IV NOW STA Stop: 05/12/25 15:29 Last Admin: 05/12/25 16:27 Dose: 2 mg Documented By: LIT Lorazepam (Lorazepam 2 Mg/Ml Inj) 2 mg IV NOW ONE Stop: 05/12/25 18:49 Last Admin: 05/12/25 19:00 Dose: 2 mg Documented By: LIT Olanzapine (Olanzapine 10 Mg Vial) 5 mg IM NOW ONE Stop: 05/12/25 15:04 Last Admin: 05/12/25 15:10 Dose: 5 mg Documented By: RUKHSANA Phenobarbital (Phenobarbital 65 Mg/Ml Vial) 130 mg IV NOW ONE Stop: 05/12/25 12:45 Last Admin: 05/12/25 13:32 Dose: Not Given Documented By: BZ Phenobarbital (Phenobarbital 65 Mg/Ml Vial) 260 mg IV NOW ONE Stop: 05/12/25 12:53 Last Admin: 05/12/25 12:59 Dose: 260 mg Documented By: RAHUL Phenobarbital (Phenobarbital 65 Mg/Ml Vial) 260 mg IV NOW STA Stop: 05/12/25 15:29 Last Admin: 05/12/25 16:28 Dose: 260 mg Documented By: LIT Vital Signs Vital signs: Vital Signs - 8 hr 05/12/25 12:24 05/12/25 13:11 05/12/25 13:17 Temperature 98.1 F Pulse Rate 82 111 H 102 H Respiratory Rate 14 31 H Blood Pressure 158/91 H Pulse Oximetry 98 99 100 Oxygen Delivery Method Room Air Nasal Cannula Oxygen Flow Rate 4 05/12/25 13:17 05/12/25 13:21 05/12/25 13:21 Temperature Pulse Rate 103 H Respiratory Rate 24 Blood Pressure 124/64 162/76 H Pulse Oximetry 98 Oxygen Delivery Method Oxygen Flow Rate 05/12/25 13:25 05/12/25 13:25 05/12/25 13:30 Temperature Pulse Rate 94 H 92 H Respiratory Rate 30 H 25 H Blood Pressure 162/78 H Pulse Oximetry 100 Oxygen Delivery Method Nasal Cannula Oxygen Flow Rate 4 05/12/25 13:30 05/12/25 13:30 05/12/25 13:35 Temperature Pulse Rate 92 H 92 H Respiratory Rate 24 25 H Blood Pressure 162/69 H Pulse Oximetry 100 100 Oxygen Delivery Method Nasal Cannula Oxygen Flow Rate 5 05/12/25 13:35 05/12/25 13:35 05/12/25 13:40 Temperature Pulse Rate 97 H 98 H Respiratory Rate 24 25 H Blood Pressure 162/72 H Pulse Oximetry 100 98 Oxygen Delivery Method Nasal Cannula Oxygen Flow Rate 4 05/12/25 13:40 05/12/25 13:45 05/12/25 13:45 Temperature Pulse Rate 108 H Respiratory Rate 28 H Blood Pressure 164/72 H 158/62 H Pulse Oximetry 99 Oxygen Delivery Method Nasal Cannula Oxygen Flow Rate 4 05/12/25 13:55 05/12/25 13:55 05/12/25 14:00 Temperature Pulse Rate 93 H Respiratory Rate 28 H Blood Pressure 169/76 H 183/81 H Pulse Oximetry 99 Oxygen Delivery Method Oxygen Flow Rate 05/12/25 14:00 05/12/25 14:07 05/12/25 14:07 Temperature Pulse Rate 96 H 102 H Respiratory Rate 19 36 H Blood Pressure 135/69 Pulse Oximetry 100 98 Oxygen Delivery Method Oxygen Flow Rate 05/12/25 14:11 05/12/25 14:11 05/12/25 14:15 Temperature Pulse Rate 92 H 102 H Respiratory Rate 28 H 34 H Blood Pressure 162/70 H Pulse Oximetry 99 100 Oxygen Delivery Method Nasal Cannula Oxygen Flow Rate 4 05/12/25 14:15 05/12/25 14:20 05/12/25 14:20 Temperature Pulse Rate 122 H Respiratory Rate 80 H Blood Pressure 157/70 H 161/70 H Pulse Oximetry 98 Oxygen Delivery Method Nasal Cannula Oxygen Flow Rate 4 05/12/25 14:25 05/12/25 14:25 05/12/25 14:30 Temperature Pulse Rate 101 H 107 H Respiratory Rate 41 H 58 H Blood Pressure 161/69 H Pulse Oximetry 96 95 Oxygen Delivery Method Oxygen Flow Rate 05/12/25 14:43 05/12/25 14:43 05/12/25 14:45 Temperature Pulse Rate 93 H Respiratory Rate 40 H Blood Pressure 148/73 H 145/73 H Pulse Oximetry 97 Oxygen Delivery Method Nasal Cannula Oxygen Flow Rate 4 05/12/25 14:45 05/12/25 14:50 05/12/25 14:50 Temperature Pulse Rate 87 88 Respiratory Rate 30 H 27 H Blood Pressure 148/70 H Pulse Oximetry 97 96 Oxygen Delivery Method Nasal Cannula Oxygen Flow Rate 4 05/12/25 14:55 05/12/25 14:55 05/12/25 15:00 Temperature Pulse Rate 91 H 92 H Respiratory Rate 28 H 27 H Blood Pressure 152/66 H Pulse Oximetry 96 96 Oxygen Delivery Method High Flow Nasal Cannula Oxygen Flow Rate 4 05/12/25 15:00 05/12/25 15:06 05/12/25 15:06 Temperature Pulse Rate 101 H Respiratory Rate 34 H Blood Pressure 156/69 H 160/69 H Pulse Oximetry 99 Oxygen Delivery Method Room Air Oxygen Flow Rate 4 05/12/25 15:11 05/12/25 15:11 05/12/25 15:15 Temperature Pulse Rate 96 H 97 H Respiratory Rate 39 H 46 H Blood Pressure 115/58 L Pulse Oximetry 99 97 Oxygen Delivery Method Oxygen Flow Rate 05/12/25 15:15 Temperature Pulse Rate Respiratory Rate Blood Pressure 135/65 Pulse Oximetry Oxygen Delivery Method Oxygen Flow Rate MDM - Seizure Medical Records Attestation: I reviewed the patient's medical records. Lab Data 05/12/25 13:07 05/12/25 13:07 Labs: Lab Results 05/12/25 05/12/25 Range/Units 13:07 13:07 WBC 18.3 H (4.5-11.0) X10^3/uL RBC 4.48 (4.0-5.2) X10^6/uL Hgb 12.4 (12.0-16.0) g/dL Hct 39.5 (36-46) % MCV 88.2 (80-100) fL MCH 27.6 (26-34) PG MCHC 31.3 (30-36) % RDW 21.4 H (11.6-14.8) % Plt Count 369 (150-400) X10^3/uL Neut % (Auto) 77.4 H (50-75) % Lymph % (Auto) 15.1 L (25-40) % [place] % (Auto) 7.0 (3-14) % Eos % (Auto) 0.0 L (2-4) % Baso % (Auto) 0.5 (0-2) % Neut # (Auto) 72930 H (3017-3343) /uL Lymph # (Auto) 2800 (1792-7448) /uL [place] # (Auto) 1300 H (0-900) /uL Eos # (Auto) 0 (0-450) /uL Baso # (Auto) 100 (0-100) /uL Sodium 139 (137-145) mmol/L Potassium 5.1 (3.4-5.1) mmol/L Chloride 103 (98-107) mmol/L Carbon Dioxide 14 L (22-32) mmol/L BUN 7 (7-17) mg/dL Creatinine 1.00 (0.52-1.04) mg/dL Estimated GFR > 60 (>60) mL/min BUN/Creatinine Ratio 7.0 (6-22) Glucose 145 H (70-99) mg/dL Lactate 8.9 H* (0.7-2.1) mmol/L Calcium 9.9 (8.4-10.2) mg/dL Magnesium 2.0 (1.6-2.3) mg/dL Total Bilirubin 1.0 (0.2-1.3) mg/dL AST 77 H (14-36) IU/L ALT 35 H (<35) IU/L Alkaline Phosphatase 82 (38-126) U/L Total Creatine Kinase 613 H (30-135) U/L Troponin I < 0.012 (0.01-0.034) ng/mL Total Protein 9.1 H (6.3-8.2) g/dL Albumin 5.2 H (3.5-5.0) g/dL Globulin 3.9 (1.7-4.1) g/dL Albumin/Globulin Ratio 1.3 (1.0-2.8) Procalcitonin 0.052 (<0.5) ng/mL TSH 1.31 (0.47-4.68) uIU/mL Ethyl Alcohol < 10 < 10 (<10) mg/dL Point of Care Testing Glucose POC 145 MDM Narrative Medical decision making narrative: 35-year-old female with a past medical history of alcohol use disorder, seizures who presents to the emergency department via private vehicle with her for concern of a seizure at 4:00 a.m. today. Differential diagnosis includes but is not limited to alcohol withdrawal seizure, epileptic seizure, etc. On exam patient is in no acute distress, nontoxic appearing, no focal neurologic deficits. Abdomen is soft and nontender. Family reports seizure 4:00 a.m. this morning, patient did not recall events of the seizure. Patient is unsure what she drinks but believe that she did break sobriety yesterday after being sober for about 1 month. Reports that she has had alcohol withdrawal seizures in the past. We will obtain baseline lab work, treat with IV fluids, thiamine, phenobarbital. I was informed by nursing staff that after I left the triage room patient did admit to feeling suicidal as well. We will consult [facility]. 1258: Informed by nursing staff the patient began having a seizure in the emergency department. Attending physician, Dr. Quick, made aware. Patient was moved into room 2, she received 2 mg of Ativan, 260 mg phenobarbital, 2 g of Keppra. Blood work obtained after patient's seizure. Labs reveal elevated WBC count 18.3, lactate 8.9 CK 613. Sodium 139 potassium 5.1, BUN 7 creatinine 1.0. Glucose 145. AST 77, ALT 35, troponin negative/undetectable. Total bilirubin normal 1.0. Alcohol level is negative. Transfer of care to ED attending, Dr. Quick for higher level of care due. Discharge Plan Departure Patient Disposition: Admitted As Inpatient Clinical Impression: Seizure Alcohol withdrawal Qualifiers: Complication of substance-induced condition: with perceptual disturbance Qualified Code(s): F10.932 - Alcohol use, unspecified with withdrawal with perceptual disturbance Admit Date/Time: 05/12/25 15:16 Admit Provider: Brayden Paniagua
[2025-05-12 13:50] LABS: Procalcitonin 0.052 ng/mL (<0.5)
[2025-05-12 14:22] LABS: TSH w/ Reflex to FT4 1.31 uIU/mL (0.47-4.68)
--- NOTE | 2025-05-12 14:36 | EKG_ITS ---
[address] [address] Test Date: 2025-05-12 Pat Name: Alisa Shepard Department: Room: 230 Gender: Female Moveman: JUVENTINO : 1990 Requested By: Order Number: [id number] Reading MD: Nemesio Carmona Measurements Intervals [place] Rate: 86 P: 67 NV: 148 QRS: 39 QRSD: 92 T: 32 QT: 382 QTc: 457 Interpretive Statements Normal sinus rhythm Possible Left atrial enlargement Electronically Signed On 05-15-2025 12:55:42 PST by Nemesio Carmona
[2025-05-12 14:51] LABS: Reflexed Lactate in 2 Hours Y
[2025-05-12] MEDS: OLANZapine 10 MG VIAL 5 MG IM (15:10)
[2025-05-12 15:51] LABS: Lactate 2HR (Lactic Acid Rflx) 2.1 mmol/L (0.7-2.1)
[2025-05-12] MEDS: dexmedeTOMIDine in 0.9 % NaCL 400 MCG/100 ML PLAST..BAG IV (16:27)
--- NOTE | 2025-05-12 17:25 | PC.NURSE ---
Patient offered bedpan, patient unable to cooperate and voids. Patient bedding changed and provided patient with briefs and dry linen.
--- NOTE | 2025-05-12 17:45 | PC.NURSE ---
Admit Note Pt arrived to room 230 via stretcher at 1617, 4 point soft restraints removed prior to transfer to bed. Patient initially snoring and calm but was thrashing limbs nonpurposely upon moving to bed via slider board, unable to reorient but settled back to snoring. Red and swollen tongue noted with abrasions, no active bleeding, Dax RN reports witnessed pt biting tongue during seizure. Pt thrashes with any care and pulls at lines, one time orders of ativan and phenobarbitol given on arrival and precedex gtt started, see titration. SpO2 upper 90s on RA, Dr. Paniagua ordered 2L NC overnight, attempted to place oxygen but pt removes, Dr. Paniagua aware. Attempted to place telemetry but pt immediately pulled off, Dr. Paniagua aware. Tolerating SpO2 and BP monitoring at this time, IVs are in place and patent. is at bedside. Seizure pads in place, suction is connected and available. Bed alarm on for safety.
--- NOTE | 2025-05-12 18:36 | P.HP_ITS ---
History of Present Illness History of Present Illness Date Patient Seen: 05/12/25 Chief complaint: Seizure, this morning Narrative: Chief complaint: Seizure this morning with confused agitative combative behavior postictally History of present illness: 05/12: 35-year-old female with a recent history of with alcohol withdrawal seizure treated at [facility] in [place] started on Keppra 500 mg twice daily ran out of her prescription of Keppra 5 days ago. She presents to the emergency department via private vehicle with her for concern of a seizure at 4:00 a.m. today. Patient has been sober from alcohol for about 1 month but it appears that she did drink alcohol yesterday evening. Around 4:00 a.m. her witnessed her having a seizure that lasted about 60 seconds and which her body was very stiff and rigid. states that she was able to answer questions after the seizure however she has been very confused all morning, she is unsure of what she drank yesterday, she does not recall the seizure. Reportedly she was also being sober for 1 month going to alcoholics anonymous meetings with [facility] was out with friends and had 1 0 dose and 1 marked tail only for her friends observation. Her has seen no evidence of drinking in his found no hidden bottles of alcohol. CT head and chest x-ray are negative Laboratory evaluation very significant for undetectable ethanol level Lactate initially 8.9 but de-escalated to 2.1 [place] [address] CO2 14 lactate 8.9 CK 613 AST 77 ALT 35 bilirubin 1.0 Review of systems: Unable to participate Physical exam: Intermittently somnolent snoring and thrashing restlessly Multiple bruises minor lacerations excoriations on face neck arms chest knees and feet No labored respiration Moves all extremities No abdominal distention Assessment and plan: Seizure with post ictal state with high lactic acid suggesting prolonged apneic state and possible hypoxic brain injury may or may not have consumed alcohol history seems reliable that she has been sober * Admit to ICU * Loaded with Keppra 2 g loading dose * Precedex infusion * Nasal cannula oxygen * CIWA protocol * Sedation with benzodiazepines and phenobarbital as needed DVT prophylaxis: * Contraindicated due to seizures Code status: * Full code blue Disposition: * Inpatient ICU * Expect 3 days possibly more Time based billing: * 75 minutes were involved evaluation of the patient including [id number] evaluation recur returns for episodic behavior treatments encephalopathy and confusion with agitated delirium discussion with discussion with emergency staff discussion with care team in the ICU review of previous medical records objective laboratory and imaging findings [facility] Medical History Alcohol use disorder Social History household members: spouse Smoking Status: Current every day smoker alcohol intake: current Meds Home Medications and Allergies Home Medications ?Medication ?Instructions ?Recorded ?Confirmed ?Type hydroxyzine HCl 25 mg tablet 25 mg PO Q6H PRN PRN 05/1202/26/25 History venlafaxine 150 mg 150 mg PO DAILY 06/08/23 History capsule,extended release 24 hr venlafaxine 75 mg capsule,extended 75 mg PO DAILY 12/0202/26/25 History release 24 hr thiamine HCl (vitamin B1) 100 mg 100 mg PO BID #60 tab s 01/14/25 02/26/25 Rx tablet levetiracetam 500 mg tablet 500 mg PO BID 05/12/2509/01 History propranolol 60 mg capsule,24 60 mg PO DAILY 05/12/25 1 07/13/24 History hr,extended release Allergies Allergy/AdvReac Type Severity Reaction Status Date / Time Penicillins Allergy Intermediate Hives Verified 05/12/25 12:24 amoxicillin AdvReac Intermediate Hives Verified 05/12/25 12:24 Exam Vital Signs (past 8 hours): - 05/12/25 12:24 05/12/25 13:11 05/12/25 13:17 Temperature 98.1 F Pulse Rate 82 111 H 102 H Respiratory Rate 14 31 H Blood Pressure 158/91 H Pulse Oximetry 98 99 100 Oxygen Delivery Method Room Air Nasal Cannula Oxygen Flow Rate 4 05/12/25 13:17 05/12/25 13:21 05/12/25 13:21 Temperature Pulse Rate 103 H Respiratory Rate 24 Blood Pressure 124/64 162/76 H Pulse Oximetry 98 Oxygen Delivery Method Oxygen Flow Rate 05/12/25 13:25 05/12/25 13:25 05/12/25 13:30 Temperature Pulse Rate 94 H 92 H Respiratory Rate 30 H 25 H Blood Pressure 162/78 H Pulse Oximetry 100 Oxygen Delivery Method Nasal Cannula Oxygen Flow Rate 4 05/12/25 13:30 05/12/25 13:30 05/12/25 13:35 Temperature Pulse Rate 92 H 92 H Respiratory Rate 24 25 H Blood Pressure 162/69 H Pulse Oximetry 100 100 Oxygen Delivery Method Nasal Cannula Oxygen Flow Rate 5 05/12/25 13:35 05/12/25 13:35 05/12/25 13:40 Temperature Pulse Rate 97 H 98 H Respiratory Rate 24 25 H Blood Pressure 162/72 H Pulse Oximetry 100 98 Oxygen Delivery Method Nasal Cannula Oxygen Flow Rate 4 05/12/25 13:40 05/12/25 13:45 05/12/25 13:45 Temperature Pulse Rate 108 H Respiratory Rate 28 H Blood Pressure 164/72 H 158/62 H Pulse Oximetry 99 Oxygen Delivery Method Nasal Cannula Oxygen Flow Rate 4 05/12/25 13:55 05/12/25 13:55 05/12/25 14:00 Temperature Pulse Rate 93 H Respiratory Rate 28 H Blood Pressure 169/76 H 183/81 H Pulse Oximetry 99 Oxygen Delivery Method Oxygen Flow Rate 05/12/25 14:00 05/12/25 14:07 05/12/25 14:07 Temperature Pulse Rate 96 H 102 H Respiratory Rate 19 36 H Blood Pressure 135/69 Pulse Oximetry 100 98 Oxygen Delivery Method Oxygen Flow Rate 05/12/25 14:11 05/12/25 14:11 05/12/25 14:15 Temperature Pulse Rate 92 H 102 H Respiratory Rate 28 H 34 H Blood Pressure 162/70 H Pulse Oximetry 99 100 Oxygen Delivery Method Nasal Cannula Oxygen Flow Rate 4 05/12/25 14:15 05/12/25 14:20 05/12/25 14:20 Temperature Pulse Rate 122 H Respiratory Rate 80 H Blood Pressure 157/70 H 161/70 H Pulse Oximetry 98 Oxygen Delivery Method Nasal Cannula Oxygen Flow Rate 4 05/12/25 14:25 05/12/25 14:25 05/12/25 14:30 Temperature Pulse Rate 101 H 107 H Respiratory Rate 41 H 58 H Blood Pressure 161/69 H Pulse Oximetry 96 95 Oxygen Delivery Method Oxygen Flow Rate 05/12/25 14:43 05/12/25 14:43 05/12/25 14:45 Temperature Pulse Rate 93 H Respiratory Rate 40 H Blood Pressure 148/73 H 145/73 H Pulse Oximetry 97 Oxygen Delivery Method Nasal Cannula Oxygen Flow Rate 4 05/12/25 14:45 05/12/25 14:50 05/12/25 14:50 Temperature Pulse Rate 87 88 Respiratory Rate 30 H 27 H Blood Pressure 148/70 H Pulse Oximetry 97 96 Oxygen Delivery Method Nasal Cannula Oxygen Flow Rate 4 05/12/25 14:55 05/12/25 14:55 05/12/25 15:00 Temperature Pulse Rate 91 H 92 H Respiratory Rate 28 H 27 H Blood Pressure 152/66 H Pulse Oximetry 96 96 Oxygen Delivery Method High Flow Nasal Cannula Oxygen Flow Rate 4 05/12/25 15:00 05/12/25 15:06 05/12/25 15:06 Temperature Pulse Rate 101 H Respiratory Rate 34 H Blood Pressure 156/69 H 160/69 H Pulse Oximetry 99 Oxygen Delivery Method Room Air Oxygen Flow Rate 4 05/12/25 15:11 05/12/25 15:11 05/12/25 15:15 Temperature Pulse Rate 96 H 97 H Respiratory Rate 39 H 46 H Blood Pressure 115/58 L Pulse Oximetry 99 97 Oxygen Delivery Method Oxygen Flow Rate 05/12/25 15:15 05/12/25 15:30 05/12/25 16:00 Temperature Pulse Rate 101 H 94 H Respiratory Rate 53 H Blood Pressure 135/65 Pulse Oximetry 93 Oxygen Delivery Method Room Air Oxygen Flow Rate 05/12/25 16:30 05/12/25 16:51 05/12/25 16:51 Temperature Pulse Rate 100 H 109 H Respiratory Rate Blood Pressure 124/101 H Pulse Oximetry 98 96 Oxygen Delivery Method Oxygen Flow Rate 05/12/25 17:00 05/12/25 17:01 05/12/25 17:01 Temperature Pulse Rate 112 H 112 H Respiratory Rate Blood Pressure 132/79 Pulse Oximetry 94 95 Oxygen Delivery Method Oxygen Flow Rate 05/12/25 17:30 Temperature Pulse Rate 104 H Respiratory Rate Blood Pressure Pulse Oximetry 97 Oxygen Delivery Method Oxygen Flow Rate Oxygen Delivery Method Room Air Oxygen Flow Rate 4 Objective Labs 05/12/25 13:07 05/12/25 13:07 Labs: Laboratory Results - last 24 hr 05/12/25 05/12/25 05/12/25 13:07 13:07 15:18 WBC 18.3 H RBC 4.48 Hgb 12.4 Hct 39.5 MCV 88.2 MCH 27.6 MCHC 31.3 RDW 21.4 H Plt Count 369 Neut % (Auto) 77.4 H Lymph % (Auto) 15.1 L [place] % (Auto) 7.0 Eos % (Auto) 0.0 L Baso % (Auto) 0.5 Neut # (Auto) 89928 H Lymph # (Auto) 2800 [place] # (Auto) 1300 H Eos # (Auto) 0 Baso # (Auto) 100 Sodium 139 Potassium 5.1 Chloride 103 Carbon Dioxide 14 L BUN 7 Creatinine 1.00 Estimated GFR > 60 BUN/Creatinine Ratio 7.0 Glucose 145 H Lactate 8.9 H* 2.1 Calcium 9.9 Magnesium 2.0 Total Bilirubin 1.0 AST 77 H ALT 35 H Alkaline Phosphatase 82 Total Creatine Kinase 613 H Troponin I < 0.012 Total Protein 9.1 H Albumin 5.2 H Globulin 3.9 Albumin/Globulin Ratio 1.3 Procalcitonin 0.052 TSH 1.31 Ethyl Alcohol < 10 < 10 Assessment & Plan Time-Based Coding :: [TOTAL MINUTES] spent with patient and on the chart (including review of chart, obtaining history, exam, reviewing outside data, placing orders, documenting exam and treatment plan, and counseling patient) on [DATE].
[2025-05-12] MEDS: DEXTROSE 5%-0.9% NS 1,000 ML 100 ML IV (19:00)
[2025-05-12 19:17] LABS: MRSA (Nasal) PCR NOT DETECTED (Not Detect)
[2025-05-12] MEDS: dexmedeTOMIDine in 0.9 % NaCL 400 MCG/100 ML PLAST..BAG 17 MCG IV (21:19)
[2025-05-13] VITALS (50 sets, daily range): BP systolic 103–141; BP diastolic 55–85; PULSE 80–100; RESP 15–56; TEMP 36.8–38.6; O2SAT 77–100
[2025-05-13] MEDS: SODIUM CHLORIDE 0.9% 1,000 ML 1000 ML IV (00:19)
--- NOTE | 2025-05-13 02:11 | DI.RAD.S_ITS ---
PROCEDURE: XR CHEST 1V INDICATIONS: hypoxemia TECHNIQUE: One view of the chest was acquired. COMPARISON: [facility], CR, XR CHEST 1V, 02/26/2025, 18:35. FINDINGS: Surgical changes and devices: None. Lungs and pleura: Extensive consolidation left mid and lower lung. Right perihilar opacity. No pneumothorax or pleural effusion. Mediastinum: Mediastinal contours appear normal. Heart size is normal. Bones and chest wall: No suspicious bony lesions. Overlying soft tissues appear unremarkable. IMPRESSION: Consolidation concerning for pneumonia. Dictated by: Joshua Bell M.D. on 05/13/2025 at 8:59 Approved by: Joshua Bell M.D. on 05/13/2025 at 8:59
[2025-05-13] MEDS: SODIUM CHLORIDE 0.9% 1,000 ML 999 ML IV (02:22)
[2025-05-13] MEDS: ACETAMINOPHEN IV 1,000 MG/100 ML VIAL 400 MG IV (02:22)
[2025-05-13] MEDS: AMPICILLIN/SULBACTAM 3 GM 3 GM in SODIUM CHLORIDE 0.9% 100 ML IV ×4 (02:35→20:37)
[2025-05-13 02:48] LABS: UR Morphine/Opiate cutoff 300 Negative (Negative); Ur Specific Gravity Normal (Normal); Urine Tetrahydrocannabinol Positive (Negative)
[2025-05-13 02:49] LABS: Urine MDMA Negative (Negative); Urine Methamphetamines Negative (Negative); Urine Tricyclic Antidepressant Negative (Negative)
[2025-05-13] MEDS: dexmedeTOMIDine in 0.9 % NaCL 400 MCG/100 ML PLAST..BAG 10.625 MCG IV (03:13)
--- NOTE | 2025-05-13 04:36 | PM.EVENT ---
Event Note Date Patient Seen: 05/13/25 Time Patient Seen: 03:33 Event Note (Rapid Response, Code, or fall): Note patient was hypoxic requiring 4L of O2 per NC. CXR ordered and suggested possible aspiration. Patient also developed fever. IV Unasyn given and IVF. Continue to monitor and patient already NPO. AM labs ordered with VBG.
[2025-05-13 04:56] LABS: Base Excess VBG -2.4 mmol/L (0-4); HCO3 VBG 21 mmol/L (24-28); Oxygen Saturation VBG 91 % (70-75); PCO2 VBG 33.2 mmHg (45-50); PO2 VBG 59 mmHg (35-45); Total CO2 VBG 20 mmol/L (24-29); pH VBG 7.42 (7.33-7.43)
[2025-05-13] MEDS: DEXTROSE 5%-0.9% NS 1,000 ML 100 ML IV ×2 (05:28→16:11)
[2025-05-13 05:36] LABS: Hematocrit 32.9 % (36-46); Hemoglobin 10.9 g/dL (12.0-16.0); Mean Corpuscular HGB Conc 33.1 % (30-36); Mean Corpuscular Hemoglobin 28.5 PG (26-34); Mean Corpuscular Volume 86.0 fL (80-100); Platelet Count 195 X10^3/uL (150-400)
[2025-05-13 05:51] LABS: Blood Urea Nitrogen 5 mg/dL (7-17); Calcium 8.0 mg/dL (8.4-10.2); Carbon Dioxide 18 mmol/L (22-32); Chloride 110 mmol/L (98-107); Estimated Glomerular Filt Rate > 60 mL/min (>60); Glucose 120 mg/dL (70-99); HEMOLYSIS < 15 (0-50); Potassium 3.1 mmol/L (3.4-5.1); Sodium 136 mmol/L (137-145)
--- NOTE | 2025-05-13 06:32 | PC.NURSE ---
night patrol inspector RN note pt initially RASS -2/-3, restless in bed with any stimuli but not following commands with pupils 2mm sluggish bilat, snoring respirations, O2 sats >92% on 3L NC, lungs clear, precedex gtt titrated to keep pt calm RASS 0/-1, soft BPs and no urine output noted, notified at 2300, order for maddox cath and IV fluid bolus 0100-pt awake, states she's cold, shivering, no fever at this time 0200-O2 sats mid 80s, Oximask applied and sats improved, back to RASS -2 0230-temp 101.4, lungs coarse and O2 sats decreased again, RT to evaluate and placed on nonrebreather, notified, CXR and antibiotics and another fluid bolus ordered, urine now draining in maddox and sample sent to lab, pt intermittently awake and following simple commands and answer questions, cooperative with care, falls back to sleep quickly, results of CXR notified 0400-pt remains sommulent, precedex continued to be titrated down, AM labs ordered including VBG, RT notified call leon within reach, bed alarm on, seizure precautions maintained, care ongoing
[2025-05-13 07:56] LABS: Allen Test for ABG Passed? Positive; Blood Gas Collection Site Right Radial; Delivery System Non-Rebreather; HCO3 ABG 26 mmol/L (23-27); Oxygen Saturation ABG 97 % (95-100); PCO2 ABG 34.7 mmHg (35-45); PO2 ABG 80 mmHg (80-100); TCO2 ABG 25 mmol/L (23-27)
--- NOTE | 2025-05-13 09:50 | DI.CT.S_ITS ---
PROCEDURE: CT ANGIO HEAD AND NECK INDICATIONS: Neuro symptoms TECHNIQUE: After the administration of intravenous contrast, 1 mm thick sections acquired from the aortic arch through the [place]. 3-dimensional egbuths-wkqabwjpb-rugsodclbk (MIP) and/or volume rendering reformats were acquired of the central intracranial vasculature and neck separately. For radiation dose reduction, the following was used: automated exposure control, adjustment of mA and/or kV according to patient size. COMPARISON: [facility], CR, XR CHEST 1V, 05/13/2025, 2:07. [facility], CT, CT HEAD/BRAIN WO CON, 02/26/2025, 17:40. FINDINGS: Image quality: Diagnostic. Cerebral CT Angiogram: Internal carotid arteries: No acute findings. Intracranial ICA are patent with no significant stenosis. No occlusion. No aneurysm. Anterior cerebral arteries: Unremarkable. No significant stenosis. No occlusion. No aneurysm. Middle cerebral arteries: Unremarkable. No significant stenosis. No occlusion. No aneurysm. Posterior cerebral arteries: Unremarkable. No significant stenosis. No occlusion. No aneurysm. Basilar artery: Unremarkable. No significant stenosis. No occlusion. No aneurysm. Vertebral arteries: Unremarkable as visualized. Dural venous sinuses: Unremarkable given phase of enhancement. Other: Arterial phase appearance of the brain demonstrates no acute intracranial hemorrhage or mass effect. Neck CT Angiogram: Internal carotid arteries: Unremarkable. No significant stenosis. No dissection or occlusion. Common carotid arteries: Unremarkable. No significant stenosis. No dissection or occlusion. External carotid arteries: Unremarkable. No occlusion. Vertebral arteries: Unremarkable. No significant stenosis. No dissection or occlusion. Aortic Arch and Mediastinum: Partially visualized aortic arch unremarkable without evidence of aneurysm. Origins of the great vessels unremarkable. Other: Diffuse bilateral pulmonary opacities, greater on the left than on the right.. IMPRESSION: No significant intracranial arterial abnormality is seen. No significant abnormality is seen within the arteries of the neck. Bilateral pulmonary opacities are suspicious for pneumonia. Any quantitative measurements of stenosis were performed using NASCET criteria. Approved by: Florentin Lofton M.D. on 05/13/2025 at 10:54
[2025-05-13] MEDS: POTASSIUM CHLORIDE IN WATER 10 MEQ/100 ML PIGGYBACK 100 MEQ IV ×4 (10:38→14:31)
--- NOTE | 2025-05-13 12:19 | CM.DANOTE ---
B DCP Assessment Note pt is a 35yo F admitted after having a seizure at home. recent tx for alcohol withdrawal at [facility]. per chart review, spouse reports pt has been sober for a month and has been successful with AA mtgs. per spouse no alcohol in the house. FERRULER reviewed EMR per chart pt lives indep in [place] with spouse. per RN, working on transferring to hospital with neuro dep. concern for brain injury. 15ltrs non rebreather- not indicating need to intubate at this time. P: will continue to follow if pt remains here. Attempting to transfer ([facility]?). will continue to follow in case pt remains here/should any DCP needs arise FEDERICA Pruett Discharge Planning/Care Management CM Discharge Assessment Start: 05/12/25 15:30 Freq: Status: Active Protocol: Document 05/13/25 12:18 SL (Rec: 05/13/25 12:19 SL [id number]) Discharge Planning Assessment Assigned Discharge FEDERICA Sampson Verification Engineer Provider Bijal Johns Insurance [employer] DPOA/Assigned Brooks, spouse Designee Name Contact Information [phone] Advance Directives? No Advance Directives No on File History Provided By Patient,Medical Record Prior Living House Arrangements Household Members spouse Type of Drives own vehicle transporation used prior to admit Independent with ADL Yes 's Is patient alert and No: not alert at this time oriented? Discharge Plan Transfer to Higher Level of Care Referrals Initiated None needed Review Status In Process Please Provide Date 05/13/25 Initial DC Assessment Was Performed Next Review Type Continued Stay Review
--- NOTE | 2025-05-13 13:16 | DI.RAD.S_ITS ---
PROCEDURE: XR CHEST 1V INDICATIONS: Progress of pneumonia TECHNIQUE: One view of the chest was acquired. COMPARISON: [facility], CR, XR CHEST 1V, 05/13/2025, 2:07. [facility], CR, XR CHEST 1V, 02/26/2025, 18:35. FINDINGS: Surgical changes and devices: None. Lungs and pleura: Bilateral pulmonary opacities are again seen, greater on the right than on the left, not significantly changed when compared to the exam from earlier the same day. No pleural effusions or pneumothorax. Mediastinum: Mediastinal contours appear normal. Heart size is normal. Bones and chest wall: No suspicious bony lesions. Overlying soft tissues appear unremarkable. IMPRESSION: Stable bilateral pulmonary opacities. Approved by: Florentin Lofton M.D. on 05/13/2025 at 14:05
--- NOTE | 2025-05-13 13:52 | P.PN_ITS ---
Subjective Subjective Date Patient Seen: 05/13/25 Interval history: Chief complaint: Seizure this morning with confused agitative combative behavior postictally History of present illness: 05/12: 35-year-old female with a recent history of with alcohol withdrawal seizure treated at [facility] in [place] started on Keppra 500 mg twice daily ran out of her prescription of Keppra 5 days ago. She presents to the emergency department via private vehicle with her for concern of a seizure at 4:00 a.m. today. Patient has been sober from alcohol for about 1 month but it appears that she did drink alcohol yesterday evening. Around 4:00 a.m. her witnessed her having a seizure that lasted about 60 seconds and which her body was very stiff and rigid. states that she was able to answer questions after the seizure however she has been very confused all morning, she is unsure of what she drank yesterday, she does not recall the seizure. Reportedly she was also being sober for 1 month going to alcoholics anonymous meetings with [facility] was out with friends and had 1 0 dose and 1 marked tail only for her friends observation. Her has seen no evidence of drinking in his found no hidden bottles of alcohol. CT head and chest x-ray are negative Laboratory evaluation very significant for undetectable ethanol level Lactate initially 8.9 but de-escalated to 2.1 [place] [address] CO2 14 lactate 8.9 CK 613 AST 77 ALT 35 bilirubin 1.0 Hospital course: Date Patient Seen: 05/13/25 Time Patient Seen: 03:33 Event Note (Rapid Response, Code, or fall): Note patient was hypoxic requiring 4L of O2 per NC. CXR ordered and suggested possible aspiration. Patient also developed fever. IV Unasyn given and IVF. Continue to monitor and patient already NPO. AM labs ordered with VBG. 05/13: Patient had a event consistent with aspiration large left-sided lung middle and lower lobe airspace and small amount of right lower lobe airspace placed on 15 L face mask. AB.48/pCO2 34.7/PO2 80 on non-rebreather at 15 L Patient is more easily arousable stays awake for a brief period of time does have some meaningful conversation although is not completely oriented Case discussed with [facility] neurology recommended escalating the dose of Keppra to 1500 IV b.i.d. and close monitoring of her aspiration pneumonia with vigilance for developing ARDS Review of systems: Unable to participate Physical exam: Intermittently somnolent snoring and periods of arousability with some meaningful conversation Multiple bruises minor lacerations excoriations on face neck arms chest knees and feet Coarse rhonchi and secretion noises throughout precordium loudest in the left Moves all extremities No abdominal distention Assessment and plan: Seizure with post ictal state with high lactic acid suggesting prolonged apneic state and possible hypoxic brain injury may or may not have consumed alcohol history seems reliable that she has been sober * Adjust Keppra to 1500 IV q.12 * Doubt alcohol withdrawal * Precedex infusion weaned off * Nasal cannula oxygen * CIWA protocol for 24 hours * Sedation with benzodiazepines and phenobarbital not seem to be needed Aspiration pneumonia due to stomach contents * Extensive left-sided airspace and minimal right lower lobe airspace involvement * Unasyn * Blood cultures * Initially requiring 50 L non-rebreather * Vigilance for developing ARDS DVT prophylaxis: * Contraindicated due to seizures Code status: * Full code blue Disposition: * Inpatient ICU * Expect 3 days possibly more Time based billing: * 75 minutes were involved evaluation of the patient including [id number]-[id number] evaluation recur returns for episodic behavior treatments encephalopathy and confusion with agitated delirium discussion with discussion with emergency staff discussion with care team in the ICU review of previous medical records objective laboratory and imaging findings Exam Vital Signs (past 8 hours): - 05/13/25 06:00 05/13/25 06:00 05/13/25 06:30 Temperature Pulse Rate 86 85 Respiratory Rate 25 H 23 Blood Pressure 111/68 Pulse Oximetry 97 98 Oxygen Delivery Method 05/13/25 07:00 05/13/25 07:00 05/13/25 07:00 Temperature 100 F H Pulse Rate 88 Respiratory Rate 25 H Blood Pressure 115/65 Pulse Oximetry 95 Oxygen Delivery Method 05/13/25 07:00 05/13/25 07:30 05/13/25 08:00 Temperature Pulse Rate 83 84 Respiratory Rate 24 27 H Blood Pressure Pulse Oximetry 98 98 Oxygen Delivery Method Non -Rebreather 05/13/25 08:00 05/13/25 08:30 05/13/25 09:00 Temperature Pulse Rate 84 84 Respiratory Rate 23 28 H Blood Pressure 112/58 L Pulse Oximetry 99 100 Oxygen Delivery Method 05/13/25 09:00 05/13/25 09:30 05/13/25 10:20 Temperature Pulse Rate 86 86 Respiratory Rate 26 H 25 H Blood Pressure 111/60 Pulse Oximetry 98 100 Oxygen Delivery Method 05/13/25 10:30 05/13/25 10:40 05/13/25 10:40 Temperature Pulse Rate 80 85 Respiratory Rate 15 19 Blood Pressure 134/81 Pulse Oximetry 98 99 Oxygen Delivery Method 05/13/25 11:00 05/13/25 11:00 05/13/25 11:00 Temperature Pulse Rate 89 Respiratory Rate 37 H Blood Pressure 131/85 Pulse Oximetry 98 Oxygen Delivery Method Non -Rebreather 05/13/25 11:30 05/13/25 12:00 05/13/25 12:00 Temperature 98.2 F Pulse Rate 81 89 Respiratory Rate 26 H 24 Blood Pressure Pulse Oximetry 99 98 Oxygen Delivery Method 05/13/25 12:30 05/13/25 13:00 Temperature Pulse Rate 91 H 94 H Respiratory Rate 23 21 Blood Pressure Pulse Oximetry 97 97 Oxygen Delivery Method Oxygen Delivery Method Non -Rebreather Oxygen Flow Rate 4 Objective Labs 05/13/25 04:55 05/13/25 04:55 Labs: Laboratory Results - last 24 hr 05/12/25 05/12/25 05/12/25 13:07 13:20 15:18 WBC RBC Hgb Hct MCV MCH MCHC RDW Plt Count ABG Sample Site ABG pH ABG pCO2 ABG pO2 ABG HCO3 ABG Total CO2 ABG O2 Saturation ABG Base Excess Nemesio Test VBG pH VBG pCO2 VBG pO2 VBG HCO3 VBG Total CO2 VBG O2 Saturation VBG Base Excess O2 Delivery Device FiO2 % Sodium Potassium Chloride Carbon Dioxide BUN Creatinine Estimated GFR BUN/Creatinine Ratio Glucose POC Whole Bld Glucose 141 H Lactate 2.1 Calcium TSH 1.31 Nasal Screen MRSA (PCR) U Opiates 300ng/mL cut Ur Oxycodone Screen Urine Methadone Screen Ur Barbiturates Screen U Tricyclic Antidepress Ur Phencyclidine Scrn Ur Amphetamines Screen U Methamphetamines Scrn Ur MDMA Scrn (Ecstasy) U Benzodiazepines Scrn Urine Cocaine Screen U Marijuana (THC) Screen Urine pH Urine Specific [place] Ur Creatinine 05/12/25 05/13/25 05/13/25 17:18 01:30 04:53 WBC RBC Hgb Hct MCV MCH MCHC RDW Plt Count ABG Sample Site ABG pH ABG pCO2 ABG pO2 ABG HCO3 ABG Total CO2 ABG O2 Saturation ABG Base Excess Nemesio Test VBG pH 7.42 VBG pCO2 33.2 L VBG pO2 59 H VBG HCO3 21 L VBG Total CO2 20 L VBG O2 Saturation 91 H VBG Base Excess -2.4 L O2 Delivery Device FiO2 % 100.0 % Sodium Potassium Chloride Carbon Dioxide BUN Creatinine Estimated GFR BUN/Creatinine Ratio Glucose POC Whole Bld Glucose Lactate Calcium TSH Nasal Screen MRSA (PCR) Not detected U Opiates 300ng/mL cut Negative Ur Oxycodone Screen Negative Urine Methadone Screen Negative Ur Barbiturates Screen Positive H U Tricyclic Antidepress Negative Ur Phencyclidine Scrn Negative Ur Amphetamines Screen Negative U Methamphetamines Scrn Negative Ur MDMA Scrn (Ecstasy) Negative U Benzodiazepines Scrn Positive H Urine Cocaine Screen Negative U Marijuana (THC) Screen Positive H Urine pH Normal Urine Specific [place] Normal Ur Creatinine Normal 05/13/25 05/13/25 04:55 07:52 WBC 7.7 D RBC 3.83 L Hgb 10.9 L Hct 32.9 L MCV 86.0 MCH 28.5 MCHC 33.1 RDW 21.5 H Plt Count 195 ABG Sample Site Right radial ABG pH 7.48 H ABG pCO2 34.7 L ABG pO2 80 ABG HCO3 26 ABG Total CO2 25 ABG O2 Saturation 97 ABG Base Excess 2.7 Nemesio Test Positive VBG pH VBG pCO2 VBG pO2 VBG HCO3 VBG Total CO2 VBG O2 Saturation VBG Base Excess O2 Delivery Device Non-rebreather FiO2 % 100.0 % Sodium 136 L Potassium 3.1 L D Chloride 110 H Carbon Dioxide 18 L BUN 5 L Creatinine 0.72 Estimated GFR > 60 BUN/Creatinine Ratio 6.9 Glucose 120 H POC Whole Bld Glucose Lactate Calcium 8.0 L TSH Nasal Screen MRSA (PCR) U Opiates 300ng/mL cut Ur Oxycodone Screen Urine Methadone Screen Ur Barbiturates Screen U Tricyclic Antidepress Ur Phencyclidine Scrn Ur Amphetamines Screen U Methamphetamines Scrn Ur MDMA Scrn (Ecstasy) U Benzodiazepines Scrn Urine Cocaine Screen U Marijuana (THC) Screen Urine pH Urine Specific [place] Ur Creatinine PFSH Medical History Alcohol use disorder Social History household members: spouse Smoking Status: Current every day smoker alcohol intake: current Assessment & Plan Time-Based Coding :: [TOTAL MINUTES] spent with patient and on the chart (including review of chart, obtaining history, exam, reviewing outside data, placing orders, documenting exam and treatment plan, and counseling patient) on [DATE]. Quality VTE Deep Vein Thrombosis/Pulmonary Embolism Present on Admission: No
[2025-05-13] MEDS: CHLORHEXIDINE GLUCONATE 15 ML CUP PO ×2 (14:31→20:37)
[2025-05-13] MEDS: dexmedeTOMIDine in 0.9 % NaCL 400 MCG/100 ML PLAST..BAG 6.375 MCG IV (16:09)
[2025-05-14] VITALS (29 sets, daily range): BP systolic 124–165; BP diastolic 79–93; PULSE 75–120; RESP 18–44; TEMP 36.9–38.3; O2SAT 88–99
--- NOTE | 2025-05-14 00:46 | PC.NURSE ---
Patient IV infiltration in Left forearm at 0015. IV removed, tip intact. Informed provider. Compress applied and extremity elevated.
[2025-05-14] MEDS: AMPICILLIN/SULBACTAM 3 GM 3 GM in SODIUM CHLORIDE 0.9% 100 ML IV ×4 (03:55→20:37)
[2025-05-14] MEDS: DEXTROSE 5%-0.9% NS 1,000 ML 100 ML IV (03:56)
[2025-05-14] MEDS: CHLORHEXIDINE GLUCONATE 15 ML CUP PO (08:18)
--- NOTE | 2025-05-14 09:05 | CM.DPC ---
Per Steve Cortes, patient improving. Precedex discontinued. Patient alert and following commands. No seizures overnight.
--- NOTE | 2025-05-14 11:21 | OT.IPNOTE ---
Per pt's nurse, pt is now independent in the room and has been using the bathroom on her own. Discharge OT eval orders, CM and hospitalist notified.
--- NOTE | 2025-05-14 14:25 | CM.DPC ---
CM established an Outpatient Follow up Appointment with [facility] for 05/27/2025 at 1515. Copy given to patient. Community transportation resources provided.
[2025-05-14] MEDS: ACETAMINOPHEN 325 MG TABLET 650 MG PO (14:53)
--- NOTE | 2025-05-14 15:51 | PT.IIE ---
Current Diagnoses Unspecified convulsions (05/12/25) Medical History (Last Reviewed 05/12/25 @ 13:54 by Reshma Mistry PA-C) Alcohol use disorder Physical Therapy Inpatient Evaluation/Re-Eval M1 PT IP Prior Functional Status Start: 05/14/25 16:07 Freq: NEEDED Status: Active Protocol: Document 05/14/25 15:51 DLM (Rec: 05/14/25 16:22 DLM Desktop) Medical Review Prior Functional Status Medical History Yes Reviewed Diet/Fluid Regular Consistency Communication WNL Mobility and Gait Independent, no device, active Activities of Daily Independent Living and IADL's Social History Household Members spouse Living Arrangements House Number of Floors ( Two Floors Floors) Home Environment Tub/Shower M2 PT-IP Current Condition Start: 05/14/25 16:07 Freq: NEEDED Status: Active Protocol: Document 05/14/25 15:51 DLM (Rec: 05/14/25 16:22 DLM Desktop) Physical Therapy Current Condition Current Condition Evaluation Date 05/14/25 Treatment Diagnosis seizure, aspiration PNA, decreased activity tolerance M3 PT-IP Subjective Start: 05/14/25 16:07 Freq: NEEDED Status: Active Protocol: Document 05/14/25 15:51 DLM (Rec: 05/14/25 16:22 DLM Desktop) Subjective Physical Therapy Visit Type Type Initial Evaluation Visit Start Time 15:20 Visit Stop Time 15:51 Notes 31 min Number of DIRECTOR OF HEALTH EDUCATION Visits 0 Physical Therapy Visit Comments Patient Comments She reports feeling hot and flushed this afternoon. She describes feeling better but not back to baseline yet. Patient Goals to go home Therapy Pain Assessment Pain When Pain Assessed At Rest Pain Present Pain Present Pain Reported Location abdomen Intensity 5 Scale Used Numeric (0 - 10) Description Aching,Spasm,Tender,With Movement Pain Behaviors Guarding Pain Management Modification of Treatment Techniques M4 PT-IP Mobility and Gait Start: 05/14/25 16:07 Freq: NEEDED Status: Active Protocol: Document 05/14/25 15:51 DLM (Rec: 05/14/25 16:22 DLM Desktop) PT-Bed Mobility Assessment Rolling Level of Assist Independent Supine to Sit Supine to Sit Independent,Bedrails Sit to Supine Sit to Supine Independent Scooting Scooting to Edge of Independent Bed PT-Transfer Assessment Sit to and From Stand Sit to and from Standby Assistance Stand Equipment Transfer Assistive Gait Belt Device Transfers Transfer Destination Bed,Toilet Transfer Technique Stand Step Pivot Transfer Ability Level of Assist Standby Assistance,Use of Upper Extremities Comments Mobility Comments mild increased sway with self recovery of balance Gait Assessment Gait Gait Assistance Standby Assistance Required: Distance (Feet) 140 Assistive Devices Assistive Device Gait Belt Factors Limiting Gait Function Factors Limiting Decreased Activity Tolerance,Respiratory Distress Gait Function Comments Gait Comments Shortness of breath and fatigue with gait, she ambulated in luo, sat to recover then completed a second lap in luo. O2 sat monitor shows temporary drop in O2 sat to 85-88% with unclear quality of signal. At rest her O2 sats increase to 95-98%. Pt is on room air . She has mild intermittent increase in lateral path of gait but able to self-correct. Stair Climbing Assessment Comments Stair Climbing not tested due to fatigue with gait Comments PT-Balance Assessment Sitting Balance and Reactions Static Sitting Normal Balance Ability Dynamic Sitting Normal Balance Ability Standing Balance and Reactions Static Standing Good Balance Ability Dynamic Standing Good Balance Ability Balance Tests Single Limb Standing 10 sec each Romberg Independent Tandem Standing independent Comments Other Balance Tests/ she describes feeling a little dizzy today Deviations/Treatment She is able to read without difficulty : M5 PT-IP Objective Assessments Start: 05/14/25 16:07 Freq: NEEDED Status: Active Protocol: Document 05/14/25 15:51 DLM (Rec: 05/14/25 16:22 DLM Desktop) Orientation Orientation/Cognition Level of Alertness Alert Orientation Name,Age,Birthday,Month,Year,Day of Week,Place, Situation Language Function No Deficits Noted Ability Safety Awareness Understands Safety Issues Memory Description No Deficits Noted Gross Range of Motion Upper Extremity ROM Assessment Within Functional Limits Lower Extremity ROM Assessment Within Functional Limits Strength Upper Extremity Strength Assessment Within Functional Limits Lower Extremity Strength Assessment Within Functional Limits Coordination Assessment Gross Coordination Gross Coordination WNL Sensation Assessment Sensation Gross Sensation Right LE Impaired,Left LE Impaired Sensation Numbness Description Comments Sensation Comments mild numbness bilateral anterior tibial area, new this admission Muscle Tone Muscle Tone WNL Yes M6 PT-IP Treatment Start: 05/14/25 16:07 Freq: NEEDED Status: Active Protocol: Document 05/14/25 15:51 DLM (Rec: 05/14/25 16:22 DLM Desktop) Physical Therapy Treatment Education Education Provided Safety M7 PT-IP Assessment and Plan Start: 05/14/25 16:07 Freq: NEEDED Status: Active Protocol: Document 05/14/25 15:51 DLM (Rec: 05/14/25 16:22 DLM Desktop) PT Summary Assessment and Plan Potential Rehabilitation Good Potential Status of Condition Evolving at Evaluation Summary Impairments Gait,Activity Tolerance Assessment Summary Alisa is alert and resting in bed. She was admitted after having seizure. She suffered aspiration PNA while vomiting. Concern for brain injury. She shows good progress during this admission. She was able to ambulate in the luo without device with SBA. She has mild decrease in balance functionally and shortness of breath with activity. She recovers well with seated rest breaks. Her activity tolerance is decreased at this time. Will follow during this hospitalization to progress her activity tolerance as well as gait and stair training. Recommend discharge home with Spouse when she is medically stable. Goals Gait Goal Independent Gait Distance 300 feet Other Goals up/down 12 steps with rail and SBA Days to Meet Goals 3 Frequency of Treatment Frequency Of Once a Day Treatment Treatment Plan Physical Therapy Gait Training,Discharge Planning,Neuromuscular Re-ed Treatment Plan Other stair training Recommendations and Next Treatment Focus Precautions Other Precautions seizure precautions aspiration PNA during this admit Recommendations To Nursing Amount of Assist Standby Assistance Needed Discharge Recommendations PT Discharge Home with Assistance Recommendations Other Discharge she has supportive Spouse Recommendations Transportation Needs Private Vehicle at Discharge - PT assist 1
[2025-05-14 18:32] LABS: Blood Urea Nitrogen 4 mg/dL (7-17); Calcium 8.5 mg/dL (8.4-10.2); Carbon Dioxide 24 mmol/L (22-32); Chloride 104 mmol/L (98-107); Estimated Glomerular Filt Rate > 60 mL/min (>60); Glucose 98 mg/dL (70-99); HEMOLYSIS < 15 (0-50); Potassium 3.3 mmol/L (3.4-5.1); Sodium 134 mmol/L (137-145)
[2025-05-15] VITALS (15 sets, daily range): BP systolic 146–156; BP diastolic 79–89; PULSE 71–97; RESP 14–42; TEMP 36.2–38.8; O2SAT 93–100
[2025-05-15] MEDS: ACETAMINOPHEN 325 MG TABLET 650 MG PO ×2 (00:04→13:51)
[2025-05-15] MEDS: ZOLPIDEM 5 MG TABLET 10 MG PO (00:04)
[2025-05-15] MEDS: AMPICILLIN/SULBACTAM 3 GM 3 GM in SODIUM CHLORIDE 0.9% 100 ML IV ×2 (03:50→08:35)
[2025-05-15] MEDS: CHLORHEXIDINE GLUCONATE 15 ML CUP PO (08:19)
[2025-05-15] MEDS: POTASSIUM CHLORIDE 20 MEQ TAB 40 MEQ PO (08:35)
[2025-05-15] MEDS: VENLAFAXINE ER 75 MG CAP 150 MG PO (09:44)
[2025-05-15] MEDS: PROPRANOLOL 10 MG TABLET 30 MG PO (09:44)
--- NOTE | 2025-05-15 11:05 | PM.DS.1 ---
History of Present Illness History of Present Illness Chief complaint: Seizure, this morning Narrative: From H&P: History of present illness: 05/12: 35-year-old female with a recent history of with alcohol withdrawal seizure treated at [facility] in [place] started on Keppra 500 mg twice daily ran out of her prescription of Keppra 5 days ago. She presents to the emergency department via private vehicle with her for concern of a seizure at 4:00 a.m. today. Patient has been sober from alcohol for about 1 month but it appears that she did drink alcohol yesterday evening. Around 4:00 a.m. her witnessed her having a seizure that lasted about 60 seconds and which her body was very stiff and rigid. states that she was able to answer questions after the seizure however she has been very confused all morning, she is unsure of what she drank yesterday, she does not recall the seizure. Reportedly she was also being sober for 1 month going to alcoholics anonymous meetings with [facility] [employer] was out with friends and had 1 0 dose and 1 marked tail only for her friends observation. Her has seen no evidence of drinking in his found no hidden bottles of alcohol. CT head and chest x-ray are negative Laboratory evaluation very significant for undetectable ethanol level Lactate initially 8.9 but de-escalated to 2.1 [place] [address] CO2 14 lactate 8.9 CK 613 AST 77 ALT 35 bilirubin 1.0 Discharge Providers Provider Date of admission: 05/12/25 15:16 Discharge Date: 05/15/25 Primary care physician: BÁRBARA Mcgraw Consults: 05/12/25 12:37 [place] [facility] [place] [facility] [employer] Stat Comment: [employer] Consult needed for:: Substance abuse Comment: ETOH withdrawal 05/14/25 10:28 Consult to Physical Therapy Evaluate & Treat Comment: s/p seizures Physician Instructions: Evaluate and Treat 05/14/25 10:29 Consult to Occupational Therapy Evaluate & Treat Comment: s/p seizure Physician Instructions: Evaluate and treat Discharge provider: Nemesio Carmona MD Summary Hospital Course Discharge Diagnosis: 1. Seizures, improved. 2. Aspiration pneumonia, improving. Hospital Course: Date Patient Seen: 05/13/25 Time Patient Seen: 03:33 Event Note (Rapid Response, Code, or fall): Note patient was hypoxic requiring 4L of O2 per NC. CXR ordered and suggested possible aspiration. Patient also developed fever. IV Unasyn given and IVF. Continue to monitor and patient already NPO. AM labs ordered with VBG. 05/13: Patient had a event consistent with aspiration large left-sided lung middle and lower lobe airspace and small amount of right lower lobe airspace placed on 15 L face mask. AB.48/pCO2 34.7/PO2 80 on non-rebreather at 15 L Patient is more easily arousable stays awake for a brief period of time does have some meaningful conversation although is not completely oriented Case discussed with [facility] neurology recommended escalating the dose of Keppra to 1500 IV b.i.d. and close monitoring of her aspiration pneumonia with vigilance for developing ARDS 05/14: Improving. 05/15: She was alert, fevers were still active but improving. No hypoxia. Stable for discharge. Status at Discharge Cognitive/behavioral status at discharge: oriented Functional status at discharge: independent ambulation Overall status at discharge: patient is back to baseline Time Spent with Patient Time spent: Greater than 30 minutes Exam Vital Signs (past 8 hours): - 05/15/25 04:00 05/15/25 04:00 05/15/25 05:00 Temperature Pulse Rate 71 82 Respiratory Rate 20 36 H Blood Pressure 152/87 H Pulse Oximetry 99 100 Oxygen Delivery Method 05/15/25 06:00 05/15/25 07:00 05/15/25 07:00 Temperature Pulse Rate 81 84 Respiratory Rate 42 H 22 Blood Pressure Pulse Oximetry 100 100 Oxygen Delivery Method Room Air Oximask 05/15/25 08:00 05/15/25 08:01 05/15/25 08:05 Temperature Pulse Rate 80 91 H 89 Respiratory Rate 18 31 H 14 Blood Pressure Pulse Oximetry 99 98 100 Oxygen Delivery Method 05/15/25 08:10 05/15/25 08:10 Temperature 97.2 F L Pulse Rate 86 Respiratory Rate 23 Blood Pressure 156/89 H Pulse Oximetry 100 Oxygen Delivery Method Oxygen Delivery Method Room Air,Oximask Oxygen Flow Rate 2 Narrative Exam Narrative: NAD, alert and oriented. Fluent speech. Lungs are clear, normal rate and effort. Heart is regular, no murmur gallop or rub. Abdomen is soft, non distended. Extremities are free of edema. Objective ECG Impression: ntervals [place] Rate: 86 P: 67 KS: 148 QRS: 39 QRSD: 92 T: 32 QT: 382 QTc: 457 Interpretive Statements Normal sinus rhythm Possible Left atrial enlargement Imaging Multiple studies:: Radiologist's impression: Chest x-ray: Stable bilateral pulmonary opacities. Head and neck CTA: No significant intracranial arterial abnormality is seen. No significant abnormality is seen within the arteries of the neck. Bilateral pulmonary opacities are suspicious for pneumonia. Labs 05/13/25 04:55 05/14/25 18:13 Labs: Laboratory Results - last 24 hr 05/14/25 05/14/25 04:56 18:13 Sodium 134 L Potassium 3.3 L Chloride 104 Carbon Dioxide 24 BUN 4 L Creatinine 0.59 Estimated GFR > 60 BUN/Creatinine Ratio 6.8 Glucose 98 POC Whole Bld Glucose 102 H Calcium 8.5 PFSH Medical History Alcohol use disorder Social History household members: spouse alcohol intake: current Discharge Assessment & Plan Assessment and Plan Assessment: 1. Seizures, improved. 2. Aspiration pneumonia, improving. Plan of Treatment: Discharge with Keppra 1000mg BID and Levoquin daily for 5 days. Discharge Plan Discharge Plan Patient Disposition: Home Provider Discharge Comment: Stable for discharge. We will take antibiotics daily for an additional 5 days. Was switched to Levaquin due to a stated PCN allergy with hives. Seizure medication dose was increased as per the instructions of of Neurology at the time of her admission. Discharge orders & Medications Prescriptions: New levetiracetam 1,000 mg tablet 1,000 mg PO BID Qty: 60 2RF levofloxacin 750 mg tablet 750 mg PO DAILY Qty: 10 0RF Continued venlafaxine 150 mg capsule,extended release 24hr 150 mg PO DAILY hydroxyzine HCl 25 mg tablet 25 mg PO Q6H PRN (Reason: PRN) venlafaxine 75 mg capsule,extended release 24hr 75 mg PO DAILY Rx Instructions: Take with 150 mg tab to total 225 mg. propranolol 60 mg capsule,extended release 24 hr 60 mg PO DAILY Discontinued levetiracetam 500 mg tablet 500 mg PO BID Follow up/Referrals: Bijal Johns ARNP [Primary Care Provider, Medical] Discharge Health Status Multidrug resistant organism: No MDRO Diet/Activity/Treatments Diet: Regular Visit Report/Discharge Packet Instructions: DI for Aspiration Pneumonia, DI for Seizure Disorder -- Adult Stand Alone Forms: Patient Portal/API Discharge Data Primary Care Provider: Bijal Johns VTE Deep Vein Thrombosis/Pulmonary Embolism Present on Admission: No
--- NOTE | 2025-05-15 12:25 | CM.DPNOTE ---
DCP note CONTENT DEVELOPER reviewed EMR per provider, cleared to dc home today with OP f/u. CONTENT DEVELOPER met with pt in room. reports only concern is transport to work if not driving for 6 months. CONTENT DEVELOPER provided further comm transport resources. pt appreciative. declines other needs. P: dc home today with spouse support and OP f/u. will continue to follow if any additional DCP needs arise FEDERICA Pruett
== END 2025-05-15 14:15 | disposition home or self-care (01) | DRG 100 ==
LOC: ED 14:25 → ICU 15:21
PROVIDERS: Internal Medicine; Physician Assistant; Admitting Provider Internal Medicine; Emergency Provider Emergency Medicine; PCP Nurse Practitioner Family; Referring Provider Emergency Medicine; Visit Provider Internal Medicine
DX: R56.9 Unspecified convulsions (principal); J69.0 Pneumonitis due to inhalation of food and vomit; R09.02 Hypoxemia; R45.1 Restlessness and agitation; F17.200 Nicotine dependence, unspecified, uncomplicated; F10.91 Alcohol use, unspecified, in remission; T42.6X6A Underdosing of other antiepileptic and sedative-hypnotic drugs, initial encounter; Y90.0 Blood alcohol level of less than 20 mg/100 ml; Z91.148 Patient's other noncompliance with medication regimen for other reason
CPT/HCPCS: 36415; 36600; 70496; 70498; 71045; 80048; 80053; 80305; 80320; 82550; 82805; 82962; 83605; 83735; 84145; 84443; 84484; 85025; 85027; 87797; 93005; 94760; 94762; 96365; 96372; 96375; 97162; 99285; 99291; 99292; J0131; J0295; J1953; J2060; J2359; J2560; J3360; J7030; J7042; J7050; Q9967